=== PATIENT | female | born 1990 | race Caucasian/White ===

== ENCOUNTER 2016-11-21 11:58 | Emergency (ER) | payer MEDICAID ==
[~2016-11-21] VITALS: Ht 167.6 cm; Wt 93.9 kg
[~2016-11-21 11:58] MED LIST: CLINDAMYCIN HC300 MG PO; DARVOCET-N6 EACH/PAK PO; DIFLUCAN 200MG200 MG PO; FLONASE 50 MCG16 GM; IBUPROFEN800 MG PO; KEFLEX 500MG.500 MG PO; METFORMIN 500M500 MG PO; NAPROSYN 500MG500 MG PO; NOMEDS XX; PREDNISONE 10MG10 MG PO; PREDNISONE 20MG20 MG PO; SEPTRA DS 800 M1 TAB PO; ZITHROMAX Z PA250 MG PO
--- OUTSIDE RECORDS SUMMARY | 2016-11-21 12:10 | External Medical Summary Rpt ---
Author Author , Organization [employer] Address Unknown Phone Unavailable Care Team Providers Care Truck Spotter Name Role Phone COBB, FELICITAS Nikolay, COBB, Unavailable Unavailable FELICITAS JOSE ELIAS KINGSLEY Unavailable Unavailable JANICE GAUTHIER, Unavailable Unavailable JANICE [facility] Unavailable Unavailable SERVICE, [facility] MARSHALL SADAF, MARSHALL Unavailable Unavailable SADAF MARSHALL SADAF, MARSHALL Unavailable Unavailable SADAF [facility] Unavailable Unavailable [place], [facility] KALEY NAVARRO Unavailable Unavailable [facility], [facility] Unavailable Unavailable [facility] [place]ER[facility] JR PARTH, Unavailable Unavailable [facility], Unavailable Unavailable ECKERLINE JR PARTH [facility] Unavailable Unavailable DEPT., [facility] DE[facility]. JEREMI PATRICK, JEREMI Unavailable Unavailable [facility] Un[facility] Un[facility], [facility], Unavailable Unavailable [facility], Unavailable Unavailable [facility] STEVEN RIOS, Unavailable Unavailable STEVEN RIOS EMMETT P, Unavailable Unavailable ANIBAL GONZALES ADARSH HAT, ADARSH HAT Unavailable Unavailable [facility], Un[facility], [facility] ANDREW KRI, ANDREW KRI Unavailable Unavailable RENUSCH LAURA, RENUSCH Unavailable Unavailable LAURA SCIFRES, SCIFRES Unavailable Unavailable SCIFRES, SCIFRES Unavailable Unavailable SCIFRES ANG, SCIFRES Unavailable Unavailable ANG SCIFRES ANG, SCIFRES Unavailable Unavailable ANG LUI, ZOE [place], SMALL, Unavailable Unavailable [facility], Unavailable Unavailable [facility] Unavailable Unavailable DEPT [facility] DEPT [facility] Unavailable Unavailable DEPT [facility] DEPT [facility] CARMEN PATRICK, CARMEN Unavailable Unavailable PATRICK CARMEN PATRICK, CARMEN Unavailable Unavailable PATRICK Antonio WOLF, LUCIANO, Unavailable Unavailable Antonio C Purpose Continuity of Care Document - 08-28-2004 through 2016 Problems Code Diagnosis DOS Provider Status J320 CHRONIC 07-22-2016 [facility] SINUSITIS INC 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 N15697 HORDEOLUM 05-06-2016 SCIFRES ANG EXTERNUM RIGHT LOWER EYELID Q07217 HORDEOLUM 05-06-2016 [facility] EXTERNUM PHYSICIANS UNS EYE UNS GROUP EYELID H6121 IMPACTED 01-01-2016 [facility] CERUMEN PHYSICIAN RIGHT EAR GROUP H6690 OTITIS 01-01-2016 [facility] MEDIA PHYSICIAN UNSPECIFIED GROUP UNSPECIFIED EAR E119 TYPE 2 11-20-2015 [facility] DIABETES PHYSICIANS MELLITUS GROUP WITHOUT COMPLICATIO NS L0390 CELLULITIS 11-20-2015 [facility] UNSPECIFIED PHYSICIANS GROUP Z792 SUSTAINABILITY PROJECT COORDINATOR 11-20-2015 [facility] OF INC ANTIBIOTICS W27403 OTHER LONG 11-19-2015 [facility] CURRENT INC DRUG THERAPY E663 OVERWEIGHT 11-16-2015 [facility] PHYSICIANS GROUP Q89873 CUTANEOUS 11-14-2015 [facility] ABSCESS OF PHYSICIANS, LEFT LOWER PLLC LIMB B850 PEDICULOSIS 11-01-2015 [facility] DUE TO PHYSICIANS, PEDICULUS PLLC HUMANUS CAPITIS T78730 HORDEOLUM 11-01-2015 [facility] RIGHT LOWER INC EYELID J50115 HORDEOLUM 11-01-2015 [facility] LEFT LOWER INC EYELID X60961 CUTANEOUS 11-01-2015 [facility] ABSCESS OF PHYSICIANS, HEAD ANY PLLC PART EXCEPT FACE V220 SUPERVISION 09-11-2014 [facility] OF NORMAL [facility] FIRST V7242 09-11-2014 [facility] EXAMINATION HEALTH OR TEST POSITIVE RESULT 632 MISSED 11-25-2013 MARSHALL SADAF 84953 UNSPEC 11-23-2013 [facility] PATRICK SPONTANEOUS AB WITHOUT MENTION COMP 52836 DIAB W/O 11-22-2013 [facility] II/UNS NOT STATED UNCNTRL 41136 UNSPEC 11-22-2013 [facility] HEMORRHAGE [facility] EARLY ANTEPARTUM 55543 OTHER 11-22-2013 [facility] SPECIFED [facility] COMPLICATIO N ANTEPARTUM 96846 ABDOMINAL 11-22-2013 [facility] PAIN, JR PARTH UNSPECIFIED SITE 7915 GLYCOSURIA 11-15-2013 MARSHALL SADAF 7916 ACETONURIA 11-15-2013 MARSHALL SADAF 7919 OTHER 11-15-2013 MARSHALL SADAF NONSPECIFIC FINDING EXAMINATION OF URINE V239 UNSPECIFIED 11-14-2013 [facility] TH DEPT GENEVIEVE 7806 FEVER & OTH 01-28-2008 Antonio WOLF MD [facility] PHYSIOLOGIC DISTURBANCE S TEMP REG 0794 HUMAN 01-11-2008 [facility] [place] VIRUS IN CCE & UNS SITE 53508 MODERATE 01-11-2008 [facility] DYSPLASIA [place] INC OF CERVIX 50002 PAP SMER 01-11-2008 [facility]OM[facility] CERV W/LW [facility] OF SQUAMOUS ABILENE INTRAEPITH [facility] LES 1129 CANDIDIASIS 12-26-2007 WOMEN'S OF HEALTH UNSPECIFIED CLINIC OF SITE [facility] 6264 IRREGULAR 12-26-2007 WOMEN'S MENSTRUAL HEALTH CYCLE CLINIC OF [facility] 6262 EXCESSIVE 12-22-2007 [facility] INC MENSTRUATIO N 89473 UNSPECIFIED 12-14-2007 GABRIEL INFECTIVE STEVEN Ambrocio OTITIS EXTERNA 3831 CHRONIC 12-14-2007 GABRIEL MASTOIDITIS STEVEN Ambrocio 22526 ATROPHIC 12-14-2007 GABRIEL FLACCID STEVEN Ambrocio TYMPANIC MEMBRANE 4660 ACUTE 08-14-2007 Antonio WILKINS MD PSC 29001 CLOSED 08-02-2007 [facility] DISLOCATION AMBULANCE OF WRIST SERVICE UNSPECIFIED PART 49308 OPEN WOUND 08-02-2007 [facility] MENTION PROF SERV COMPLICATIO N 8820 OPEN WOUND 08-02-2007 [facility] HAND NO AMBULANCE FINGER SERVICE ALONE W/O MENTION COMP 920 CONTUSION 08-02-2007 [facility] MEDICAL SCALP AND IMAG[facility] EYE 9221 CONTUSION 08-02-2007 [facility] CHEST [facility] PROF SERV 42690 CONTUSION 08-02-2007 [facility] PROF SERV 96168 CONTUSION 08-02-2007 [facility] PROF SERV 7295 PAIN IN 07-10-2007 Antonio SCHWARTZ MD PSC TISSUES OF LIMB 96563 OBESITY, 09-22-2005 [facility] UNSPECIFIED OF [place] PEDIA 7061 OTHER ACNE 09-22-2005 [facility] PEDIA 27511 OVERWEIGHT 06-30-2005 [facility] PEDIA 7831 ABNORMAL 02-03-2005 [facility] WEIGHT GAIN [facility] P[facility]IA 5770 ACUTE 08-30-2004 [facility] PANCREATITI [facility] S PEDIA B85.0 PEDICULOSIS DUE TO PEDICULUS HUMANUS CAPITIS E11.9 TYPE 2 DIABETES MELLITUS WITHOUT COMPLICATIO NS H00.019 HORDEOLUM EXTERNUM UNSPECIFIED EYE, UNSPECIFIED EYELID L02.416 CUTANEOUS ABSCESS OF LEFT LOWER LIMB L02.91 CUTANEOUS ABSCESS, UNSPECIFIED Allergies, Adverse Reactions, Alerts Clinical Alert Notifications Alert Diabetes: no A1C in the last 6 months Diabetes: no influenza vaccine in the last 365 days Diabetes: no lipid panel in the last 365 days Diabetes: no urine protein screening in the last 365 days Medications Na ND Rx Da Fi Fi Am Da Di Ph RX Ph St me C No te ll ll ou ys ag ar # ys at rm s nt no ma ic us Or Da si cy ia de te s n re d FL 55 02 03 1. 1 00 [place] Ac UC 11 -2 -1 00 00 L- ti ON 10 0- 7- 0 07 MA ve AZ 14 20 20 47 RT OL 51 17 17 17 E 2 84 PH 15 AR 0 MA MG CY TA #5 BL 91 ET AZ 59 02 03 6. 5 00 [facility] IT 76 -1 -1 00 00 L- ti HR 23 7- 7- 0 07 MA ve OM 06 20 20 47 RT YC 00 17 17 13 IN 1 29 PH AR 25 MA 0 CY MG #5 TA 91 BL ET FL 60 02 03 16 30 00 [facility] UT 50 -1 -1 .0 00 L- ti IC 50 7- 7- 00 07 MA ve 82 20 20 47 RT ON 90 17 17 13 E 1 31 PH MS AR OP MA CY 50 #5 MC 91 G SP RA Y MS 00 02 03 10 5 00 [facility] ED 14 -1 -1 .0 00 L- ti NI 39 7- 7- 00 07 MA ve SO 73 20 20 47 RT NE 80 17 17 13 5 33 PH 20 AR MA MG CY TA #5 BL 91 ET FL 55 12 01 1. 1 00 [place] Ac UC 11 -0 -0 00 00 L- ti ON 10 9- 9- 0 07 MA ve AZ 14 20 20 45 RT OL 51 16 17 75 E 2 63 PH 15 AR 0 MA MG CY TA #5 BL 91 ET DO 00 12 01 20 10 00 [facility] XY 71 -0 -0 .0 00 L- ti CY 30 9- 9- 00 07 MA ve CL 42 20 20 45 RT IN 95 16 17 75 E 0 61 PH MO AR NO MA CY 10 0 #5 MG 91 CA P 00 04 09 03 1. 15 EA 97 No Ac 14 -1 -[address] 56 t ti 52 0- 1- 0 SI 00 Av ve 36 20 20 DE ai 70 08 08 la 1 PH bl AR e MA CY OF CY NT HI AN A YA 50 07 08 01 28 28 EA 98 No Ac Z 41 -2 -[address] 81 t ti 28 90 3- 8- 00 SI 91 Av ve 40 20 20 DE ai TA 50 08 08 la BL 3 PH bl ET AR e MA CY OF CY NT HI AN A YA 50 07 08 00 28 28 EA 98 No Ac Z 41 -2 -[address] 81 t ti 28 90 3- 1- 00 SI 91 Av ve 40 20 20 DE ai TA 50 08 08 la BL 3 PH bl ET AR e MA CY OF CY NT HI AN A 64 07 08 00 5. 1 EA 98 No Ac 01 -2 -[address] 81 t ti 10 3- 1- 9 SI 90 Av ve 00 20 20 DE ai 10 08 08 la 8 PH bl AR e MA CY OF CY NT HI AN A CI 00 07 07 00 7. 7 EA 98 No Ac MS 06 -1 -[address] 69 t ti OD 58 1- 7- 0 SI 54 Av ve EX 53 20 20 DE ai 30 08 08 la OT 2 PH bl IC AR e MA RICO CY SP EN OF SI CY ON NT HI AN A 00 04 07 02 1. 15 EA 97 No Ac 14 -1 -[address] 56 t ti 52 0- 7- 0 SI 00 Av ve 36 20 20 DE ai 70 08 08 la 1 PH bl AR e MA CY OF CY NT HI AN A 00 04 06 01 1. 15 EA 97 No Ac 14 -1 -[address] 56 t ti 52 0- 5- 0 SI 00 Av ve 36 20 20 DE ai 70 08 08 la 1 PH bl AR e MA CY OF CY NT HI AN A 00 04 04 00 1. 15 EA 97 No Ac 14 -1 -[address] 56 t ti 52 0- 4- 0 SI 00 Av ve 36 20 20 DE ai 70 08 08 la 1 PH bl AR e MA CY OF CY NT HI AN A AZ 64 03 04 00 6. 6 EA 97 No Ac IT 67 -1 -[address] 16 t ti HR 90 1- 7- 0 SI 73 Av ve OM 96 20 20 DE ai YC 10 08 08 la IN 5 PH bl AR e 25 MA 0 CY MG OF TA CY BL NT ET HI AN A CE 00 02 04 00 12 3 EA 97 No Ac PH 09 -2 -[address] 01 t ti AL 33 8- 7- 00 SI 98 Av ve EX 14 20 20 DE ai IN 70 08 08 la 1 PH bl 50 AR e 0 MA MG CY CA OF PS CY UL NT E HI AN A 00 02 04 00 6. 2 EA 97 No Ac 60 -2 -[address] 01 t ti 35 8- 7- 0 SI 97 Av ve 46 20 20 DE ai 82 08 08 la 8 PH bl AR e MA CY OF CY NT HI AN A 49 02 03 00 30 10 EA 96 No Ac 88 -0 -[address] 68 t ti 40 5- 6- 00 SI 19 Av ve 77 20 20 DE ai 90 08 08 la 1 PH bl AR e MA CY OF CY NT HI AN A DU 00 02 03 00 45 15 EA 96 No Ac AC 14 -2 -[address] 90 t ti 52 1- 6- 00 SI 85 Av ve 1. 37 20 20 DE ai 2- 10 08 08 la 5% 5 PH bl AR e GE MA L CY OF CY NT HI AN A JU 00 02 03 00 21 21 EA 96 No Ac NE 55 -0 -[address] 68 t ti L 59 5- 6- 00 SI 18 Av ve 1 02 20 20 DE ai MG 54 08 08 la -2 2 PH bl 0 AR e MC MA G CY TA BL OF ET CY NT HI AN A Procedures Procedure DOS Code Location Performer Comment IAADIADOO 14833 [facility] INFLUENZA INC INC OPHTH 17573 SCIFRES SCIFRES MEDICAL 6 XM&EVAL COMPRHNSV ESTAB PT 1/> REMOVAL 34163 [facility] IMPACTED 6 PHYSICIAN [place] [address] [facility] INFUSION 6 [facility] THERAPY/P INC INC ROPHYLAXI S /DX 1ST TO 1 HR INJECTION J0878 [facility] DAPTOMYCI INC INC N 1 MG INJECTION J0878 [facility] DAPTOMYCI INC INC N 1 [place] [address] [facility] INFUSION 6 [facility] THERAPY/P INC INC ROPHYLAXI S /DX 1ST TO 1 HR DRUG 83368 [facility] SCREEN 6 [facility] QUANTITAT [place] [address] [facility] INFUSION 6 [facility] THERAPY INC [place] PROP[place]X [place] [address] [facility] INFUSION 6 [facility] THERAPY/P INC INC ROPHYLAXI S /DX 1ST TO 1 HR DRUG 03049 [facility] SCREEN 6 [facility] QUANTITAT [place] [address] [facility] INFUSION 6 [facility] THERAPY INC [place] [address] [facility] INFUSION 6 [facility] THERAPY/P INC INC ROPHYLAXI S /DX 1ST TO 1 [place] [address] [facility] INFUSION 6 [facility] THERAPY INC [place] [address] [facility] INFUSION 6 [facility] THERAPY/P INC INC ROPHYLAXI S /DX 1ST TO [place] [address] [facility] INFUSION 6 [facility] THERAPY/P INC INC ROPHYLAXI S /DX 1ST TO [place] [address] [facility] INFUSION 6 [facility] THERAPY INC INC PROPHYLAX IS/DX EA HOUR THERAPEUT 81671 [facility] IC 6 [facility] INJECTION INC INC IV PUSH EACH NEW DRUG SUSCEPTIB 62838 [facility] LTY STDY 6 [facility] ANTIMICRB INC INC IAL MICRO/AGA R DILUTJ HEMOGLOBI 13481 [facility] N 6 [facility] GLYCOSYLA INC INC LIS A1C COMPREHEN 19773 [facility] SIVE 6 [facility] METABOLIC INC INC PANEL INJECTION J2405 [facility] 6 [facility] ONDANSETR INC INC ON HCL PER 1 MG CUL BACT 54495 [facility] AEROBIC 6 [facility] ADDL INC INC METHS DEFINITIV E EA ISOL CUL BACT 12177 [facility] XCPT 6 [facility] URINE INC INC BLOOD/STO OL AEROBIC ISOL BLOOD 15551 [facility] COUNT 6 [facility] COMPLETE INC INC AUTO&AUTO DIFRNTL WBC INCISION 15326 [facility] BLOOD & 6 PHYSICIAN PATRICK DRAINAGE S, PLLC ABSCESS COMPLICAT ED/MULTIP LE INCISION 89226 [facility] RENUSCShannon & 6 PHYSICIAN LAURA DRAINAGE S, PLLC ABSCESS COMPLICAT ED/MULTIP LE INCISION 46816 [facility] & 6 [facility] DRAINAGE INC INC ABSCESS SIMPLE/SI NGLE URINE 43989 [facility] [address] [place] [address] VISUAL DEPT. COLOR CMPRSN METHS [place] PREG 33076 [facility] MARSHALL UTERUS 4 SADAF SADAF REAL TIME W/IMAGE DCMTN TRANSVAG US PREG 83023 CAR[facility] CARMEN UTERUS 4 PATRICK PATRICK REAL TIME W/IMAGE DCMTN TRANSVAG BLOOD 60374 [facility] TYPING 4 Y [place] SEROLOG[place] [address] [facility] SURG 4 Y Y PATHOLOGY [facility] GROSS&PATRICK ROSCOPIC EXAM URNLS DIP 96918 [facility] 4 Y Y STICK/TAB [facility] LET RGNT AUTO W/O MICROSCOP Y URINE 42429 [facility] 4 Y Y TEST [facility] VISUAL COLOR CMPRSN METHS BLOOD 63938 [facility] TYPING 4 Y Y SEROLOGIC [facility] RH (D) BLOOD 33001 [facility] COUNT 4 Y Y COMPLETE [facility] AUTOMATED GONADOTRO 56140 [facility] PIN 4 Y Y CHORIONIC [facility] QUANTITAT EVE US PREG 16898 [facility] MARSHALL UTERUS 4 SADAF SADAF REAL TIME W/IMAGE DCMTN TRANSVAG SUSCEPTIB 37152 COMBIN[facility] COMBINED ILITY 4 PHYSICIAN PHYSICIAN STUDY S LA S LA ANTIMICRO BIAL DISK METHOD CULTURE 13329 COMBINED COMBINED BACTERIAL 4 PHYSICIAN PHYSICIAN S LA S LA QUANTTATI VE COLONY COUNT URINE URINE 14786 [facility] MARSHALL 4 SADAF SADAF TEST VISUAL COLOR CMPRSN METHS URINE 71518 [facility] TEST [facility] DEPT HLTH DEPT VISUAL GENEVIEVE GENEVIEVE COLOR CMPRSN METHS GLUC BLD 31231 [facility] GLUC MNTR 4 DISTRICT DISTRICT DEV HLTH DEPT HLTH DEPT CLEARED GENEVIEVE GENEVIEVE FDA SPEC HOME USE COLLECTIO 79600 Antonio CANTU VENOUS 8 LUCIANO Link B[place] [address] [facility], SURG 8 [place] INC JANICE Weldon PATHOLOGY GROSS&PATRICK ROSCOPIC EXAM CYTP 88721 [facility], SLCTV 8 [place] INC JANICE Weldon CELL ENHANCEME NT INTERPJ XCPT C/V COLPOSCOP 64506 [facility] CO[facility], Y CERVIX 8 [facility] BX CERVIX CLINIC OF & ENDOCRV [place] CURRETAGE PLLC SMR PRIM 90800 [facility], SRC WET 8 [facility] AGT [place] PLLC URINE 19643 [facility] 8 [facility] TEST INC INC VISUAL COLOR CMPRSN METHS CULTURE 70021 [facility] BACTERIAL 8 [facility] INC INC QUANTTATI VE COLONY COUNT URINE URNLS DIP 19501 [facility] 8 [facility] STICK/TAB INC INC LET REAGENT AUTO MICROSCOP Y BLOOD 14225 [facility] COUNT 8 [facility] COMPLETE INC INC AUTO&AUTO DIFRNTL WBC DEBRIDEME 86618 GABRIEL RIOS, NT 8 STEVEN Ambrocio MASTOIDEC NICOLA CAVITY SIMPLE COMPRE 51703 GABRIEL RIOS, AUDIOMETR 8 STEVEN Ambrocio Y THRESHOLD EVAL SP RECOGNIJ URINE 78410 [facility] TEST INC INC VISUAL COLOR CMPRSN METHS RADIOLOGI 84322 [facility] C 8 [facility] EXAMINATI INC INC ON KNEE 3 VIEWS AMBULANCE A0429 [facility] SERVICE 8 AMBULANCE AMBULANCE BLS SERVICE SERVICE EMERGENCY TRANSPORT GROUND A0425 [facility] MILEAGE 8 AMBULANCE AMBULANCE PER SERVICE SERVICE STATUTE MILE RADEX 22730 ODALYS GONZALES, FOREARM 2 8 MEDICAL ANIBAL P VIEWS IMAGING ASSOCIATE S SIMPLE 66185 [facility] SMALL, REPAIR 8 [facility] K/AX/SOWMYA PROF SERV T/TRUNK 2.5CM/< RADEX 50054 [facility] HAND 8 [facility] MINIMUM 3 INC INC VIEWS RADIOLOGI 91797 ODALYS GONZALES, C EXAM 8 MEDICAL AINBAL P CHEST 2 IMAGING VIEWS ASSOCIATE FRONTAL&L S ATERAL RADEX 16144 [facility] SPINE 8 [facility] CERVICAL INC INC 6 OR MORE VIEWS RADEX 02236 [facility] ELBOW 8 [facility] COMPLETE INC INC MINIMUM 3 VIEWS CLOSURE 8659 [facility] SKIN&SUBC 8 [facility] UTANEOUS INC INC TISSUE OTHER SITES SERVICES 13120 Antonio WOLF, Antonio PROVIDED 8 LUCIANO Link OFFICE PSC OTH/THN REG SCHED HOURS SBSQ 06242 [facility] 5 Y OF [facility]/DAY [place] 25 PEDIA MINUTES SBSQ 99315 [facility] 5 Y OF [facility]/DAY [place] 25 PEDIA MINUTES SBSQ 72484 [facility] [place] [facility]ES Encounters Encounter Start End Date Code Location Performer Type Date HOSPITAL [facility] - 7 7 [facility] OUTPATIEN INC T OFFICE 88363 [facility] 7 7 [facility] T VISIT 5 INC MINUTES OFFICE 12006 [facility] JEREMI OUTPATIEN 6 6 PHYSICIAN PATRICK T VISIT S GROUP 15 MINUTES OFFICE 22916 SCIFRES SCIFRES OUTPATIEN 6 6 ANG ANG T VISIT 10 MINUTES OFFICE 58725 [facility] KALEY OUTPATIEN 6 6 PHYSICIAN T NEW 20 GROUP MINUTES OFFICE 60119 [facility] JEREMI OUTPATIEN 6 6 PHYSICIAN PATRICK T VISIT S GROUP 10 MINUTES HOSPITAL [facility] - 6 6 [facility] OUTPATIEN INC T HOSPITAL KEEGAN - 6 6 [facility] OUTPATIEN INC T HOSPITAL KEEGAN - 6 6 [facility] OUTPATIEN INC T HOSPITAL KEEGAN - 6 6 [facility] OUTPATIEN [facility] T OFFICE 53450 [facility] JEREMI OUTPATIEN 6 6 PHYSICIAN PATRICK T NEW S GROUP MINUTES HOSPITAL K[facility] - 6 6 [facility] OUTPATIEN INC T HOSPITAL KEEGAN - 6 6 [facility] OUTPATIEN [facility] T EMERGENCY 53471 [facility] BLOOD DEPT 6 6 PHYSICIAN PATRICK VISIT S, [facility] HIGH SEVERITY& THREAT [facility] KEEGAN - 6 6 [facility] OUTPATIEN [facility] EMERGENCY 02432 [facility] WOODS 6 6 PHYSICIAN LAURA BLOOM S, [facility] T VISIT MODERATE SEVERITY OFFICE 90139 [facility] OUTPATIEN 5 5 [facility] T NEW 10 [facility] MINUTES DEPT. EMERGENCY 61152 UNIVERSIT DEPT 4 4 Y VISIT HOSPITAL HIGH SEVERITY& THREAT [facility]ERSIT - [facility] 60134 ECKERLINE ECKERLINE 4 4 [facility] T VISIT HIGH/URGE NT SEVERITY OFFICE 40746 ROLANDO MARSHALL OUTPATIEN 4 4 SADAF SADAF T 45 MINUTES OFFICE 93038 [facility] OUTPATIEN 4 4 [facility] DISTRICT T VISIT TH DEPT HLTH DEPT 25 GENEVIEVE GENEVIEVE MINUTES OFFICE 56636 Antonio CANTU OUTPATIEN 8 8 LUCIANO Link T VISIT PSC 15 MINUTES OFFICE 06410 [facility] 8 8 FREDDIE Link T NEW 30 CLINIC OF MINUTES [facility] KEEGAN - 8 8 [facility] OUTPATIEN INC T EMERGENCY 74705 [facility] 8 8 [facility] T VISIT HIGH/URGE NT SEVERITY OFFICE 83805 GABRIEL RIOS OUTPATIEN 8 8 STEVEN Ambrocio T VISIT 15 MINUTES OFFICE 83349 Antonio CANTU OUTPATIHUNG 8 8 LUCIANO Link T VISIT PSC 15 MINUTES EMERGENCY 83476 [facility] SMALL, 8 8 [facility] T VISIT PROF SERV HIGH/URGE NT SEVERITY [facility] KEEGAN - 8 8 [facility] OUTPATIEN INC T OFFICE 83200 Antonio CANTU OUTPATIHUNG 8 8 LUCIANO Link T VISIT PSC 15 MINUTES OFFICE 45054 [facility]ERSIT ADARSH HAT OUTPATIEN 6 6 Y OF T VISIT [place] 15 PEDIA MINUTES OFFICE 26471 [facility] ANDREW KRI OUTPATIEN 6 6 Y OF T VISIT [place] 15 PEDIA MINUTES OFFICE 48722 [facility] ANDREW KRI OUTPATIEN 5 5 Y OF T VISIT [place] 15 PEDIA MINUTES OFFICE 43221 [facility] ADARSH HAT OUTPATIEN 5 5 Y OF T VISIT [place] 15 PEDIA MINUTES
--- OUTSIDE RECORDS SUMMARY | 2016-11-21 12:10 | External Medical Summary Rpt ---
Author Author , Organization [employer] Address Unknown Phone Unavailable Care Team Providers Care Aws Solution Architect Name Role Phone COBB, FELICITAS Nikolay, COBB, Unavailable Unavailable FELICITAS JOSE ELIAS KINGSLEY Unavailable Unavailable JANICE GAUTHIER, Unavailable Unavailable JANICE [facility] Unavailable Unavailable SERVICE, [facility] MARSHALL SADAF, MARSHALL Unavailable Unavailable SADAF MARSHALL SADAF, MARSHALL Unavailable Unavailable SADAF [facility] Unavailable Unavailable [place], [facility] KALEY NAVARRO Unavailable Unavailable [facility], [facility] Unavailable Unavailable [facility] [place] [place] ECKERLINE JR PARTH, Unavailable Unavailable ECKERLINE JR PARTH ECKERLINE JR PARTH, Unavailable Unavailable ECKERLINE JR PARTH [facility] Unavailable Unavailable DEPT., [facility] DEPT. JEREMI PATRICK, JEREMI Unavailable Unavailable [facility] Un[facility] Un[facility], [facility], Unavailable Unavailable [facility], Unavailable Unavailable [facility] STEVEN RIOS, Unavailable Unavailable [...] ANG LUI, [place]OE [place], SMALL, Unavailable Unavailable [facility], Unavailable [facility]available [facility] Unavailable Unavailable DEPT [facility] DEPT [facility] Unavailable [facility]available DEPT [facility] DEPT [facility] CARMEN PATRICK, CARMEN Unavailable Unavailable PATRICK CARMEN PATRICK, CARMEN Unavailable Unavailable PATRICK Antonio WOLF, LUCIANO, Unavailable Unavailable Antonio C Purpose Continuity of Care Document - 08-28-2004 through 2016 Problems Code Diagnosis DOS Provider Status J320 CHRONIC 07-22-2016 [facility] SINUSITIS INC 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 REGULAR 05-13-2016 [facility] ASTIGMATISM BILATERAL D00717 HORDEOLUM 05-06-2016 [facility] ANG EXTERNUM RIGHT LOWER EYELID B87170 HORDEOLUM 05-06-2016 [facility] EXTERNUM PHYSICIANS UNS EYE UNS GROUP EYELID H6121 IMPACTED 01-01-2016 [facility] CERUMEN PHYSICIAN RIGHT EAR GROUP H6690 OTITIS 01-01-2016 [facility] MEDIA PHYSICIAN UNSPECIFIED GROUP UNSPECIFIED EAR E119 TYPE 2 11-20-2015 [facility] DIABETES PHYSICIANS MELLITUS GROUP WITHOUT COMPLICATIO NS L0390 CELLULITIS 11-20-2015 [facility] UNSPECIFIED PHYSICIANS GROUP 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 V47457 OTHER LONG 11-19-2015 [facility] CURRENT INC DRUG THERAPY E663 OVERWEIGHT 11-16-2015 [facility] D56447 CUTANEOUS 11-14-2015 [facility] ABSCESS OF PHYSICIANS, LEFT LOWER PLLC LIMB B850 PEDICULOSIS 11-01-2015 [facility] DUE TO PHYSICIANS, PEDICULUS PLLC HUMANUS CAPITIS F50957 HORDEOLUM 11-01-2015 [facility] RIGHT LOWER INC EYELID D18085 HORDEOLUM 11-01-2015 [facility] LEFT LOWER INC EYELID F33338 CUTANEOUS 11-01-2015 [place] ABSCESS OF PHYSICIANS, HEAD ANY PLLC PART EXCEPT FACE V220 SUPERVISION 09-11-2014 [facility] V7242 09-11-2014 [facility] EXAMINATION HEALTH OR TEST POSITIVE RESULT 632 MISSED 11-25-2013 MARSHALL SADAF 85619 UNSPEC 11-23-2013 [facility] PATRICK SPONTANEOUS AB WITHOUT MENTION COMP 01323 DIAB W/O 11-22-2013 [facility] II/UNS NOT STATED UNCNTRL 24239 UNSPEC 11-22-2013 E[facility] HEMORRHAGE JR PARTH EARLY ANTEPARTUM 60382 OTHER 11-22-2013 [facility] SPECIFED JR [facility] COMPLICATIO N ANTEPARTUM 73128 ABDOMINAL 11-22-2013 [facility] PAIN, JR PARTH UNSPECIFIED SITE 7915 GLYCOSURIA 11-15-2013 MARSHALL SADAF 7916 ACETONURIA 11-15-2013 [facility] SADAF 7919 OTHER 11-15-2013 [facility]ALL SADAF NONSPECIFIC FINDING EXAMINATION OF URINE V239 UNSPECIFIED 11-14-2013 [facility] HIGH-RISK DISTRICT TH DEPT GENEVIEVE 7806 FEVER & OTH 01-28-2008 Antonio WOLF MD [facility] PHYSIOLOGIC DISTURBANCE S TEMP REG 0794 HUMAN 01-11-2008 [facility] [place] VIRUS IN CCE & UNS SITE 03091 MODERATE 01-11-2008 [facility] [place]YS[place] INC OF CERVIX 19335 PAP SMER 01-11-2008 [facility]OMEN'[facility] CERV W/LW [facility] [place] [facility] LES 1129 CANDIDIASIS 12-26-2007 WOMEN'S OF HEALTH UNSPECIFIED CLINIC OF SITE [facility] 6264 IRREGULAR 12-26-2007 WOMEN'S MENSTRUAL HEALTH CYCLE [facility]IN[facility] OF [facility] 6262 EXCESSIVE 12-22-2007 [facility] INC MENSTRUATIO N 77202 UNSPECIFIED 12-14-2007 [facility] INFECTIVE STEVEN Ambrocio OTITIS EXTERNA 3831 CHRONIC 12-14-2007 [facility] MASTOIDITIS STEVEN Ambrocio 60275 ATROPHIC 12-14-2007 G[facility]EL FLACCID STEVEN Ambrocio TYMPANIC MEMBRANE 4660 ACUTE 08-14-2007 Antonio WILKINS MD PSC 48749 CLOSED 08-02-2007 [facility] DISLOCATION AMBULANCE OF WRIST SERVICE UNSPECIFIED PART 18060 OPEN WOUND 08-02-2007 [facility] MENTION PROF SERV COMPLICATIO N 8820 OPEN WOUND 08-02-2007 [facility] HAND NO AMBULANCE FINGER SERVICE ALONE W/O MENTION COMP 920 CONTUSION 08-02-2007 [facility] MEDICAL SCALP AND IMAGING [facility] 9221 CONTUSION 08-02-2007 [facility] PROF SERV 71972 CONTUSION 08-02-2007 [facility] PROF SERV 76717 CONTUSION 08-02-2007 [facility] PROF SERV 7295 PAIN IN 07-10-2007 Antonio SCHWARTZ MD PSC TISSUES OF LIMB 11332 OBESITY, 09-22-2005 [place] UNSPECIFIED OF [place] PEDIA 7061 OTHER ACNE 09-22-2005 [facility] PEDIA 12208 OVERWEIGHT 06-30-2005 [facility] PEDIA 7831 ABNORMAL 02-03-2005 [place] WEIGHT GAIN [facility] PEDIA 5770 ACUTE 08-30-2004 [place] PANCREATITI [facility] S PEDIA B85.0 PEDICULOSIS DUE TO PEDICULUS [...] FL 55 02 03 1. 1 00 [place] Ac UC 11 -2 -1 00 00 L- ti ON 10 0- 7- 0 07 MA ve AZ 14 20 20 47 RT OL 51 17 17 17 E 2 84 PH 15 AR 0 MA MG CY TA #5 BL 91 ET AZ 59 02 03 6. 5 00 [facility] IT 76 -1 -1 00 00 L- ti HR 23 7- 7- 0 07 MA ve OM 06 20 20 47 RT YC 00 17 17 13 IN 1 29 PH AR 25 MA 0 CY MG #5 TA 91 BL ET FL 60 02 03 16 30 00 [facility] UT 50 -1 -1 .0 00 L- ti IC 50 7- 7- 00 07 MA ve 82 20 20 47 RT ON 90 17 17 13 E 1 31 PH ID AR OP MA CY 50 #5 MC 91 G SP RA Y ID 00 02 03 10 5 00 [facility] ED 14 -1 -1 .0 00 L- ti NI 39 7- 7- 00 07 MA ve SO 73 20 20 47 RT NE 80 17 17 13 5 33 PH 20 AR MA MG CY TA #5 BL 91 ET FL 55 12 01 1. 1 00 [place] Ac UC 11 -0 -0 00 00 L- ti ON 10 9- 9- 0 07 MA ve AZ 14 20 20 45 RT OL 51 16 17 75 E 2 63 PH 15 AR 0 MA MG CY TA #5 BL 91 ET DO 00 12 01 20 10 00 [facility] XY 71 -0 -0 .0 [...] 00 7. 7 EA 98 No Ac ID 06 -1 -[address] 69 t [...] Procedure DOS Code Location Performer Comment IAADIADOO 05535 [facility] INFLUENZA INC INC OPHTH 74841 SCIFRES SCIFRES MEDICAL 6 XM&EVAL COMPRHNSV ESTAB PT 1/> REMOVAL 54153 [facility] KALEY IMPACTED 6 PHYSICIAN [place] [address] [facility] INFUSION 6 [facility] THERAPY/P INC INC ROPHYLAXI S /DX 1ST TO 1 HR INJECTION J0878 [facility] DAPTOMYCI INC INC N 1 MG INJECTION J0878 [facility] DAPTOMYCI INC INC N 1 [place] [address] [facility] INFUSION 6 [facility] THERAPY/P INC INC ROPHYLAXI S /DX 1ST TO 1 HR DRUG 18573 [facility] SCREEN 6 [facility] QU[place]ITAT [place] [address] [facility] INFUSION 6 [facility] THERAPY INC [place] [address] [facility] INFUSION 6 [facility] THERAPY/P INC INC ROPHYLAXI S /DX 1ST TO 1 HR DRUG 99492 [facility] SCREEN 6 [facility] QUANTITAT [place] [address] [facility] INFUSION 6 [facility] THERAPY INC [place] [address] [facility] INFUSION 6 [facility] THERAPY/P INC INC ROPHYLAXI S /DX 1ST TO 1 [place] [address] [facility] INFUSION 6 [facility] THERAPY INC [place] [address] [facility] INFUSION 6 [facility] THERAPY/P INC INC ROPHYLAXI S /DX 1ST TO 1 [place] [address] [facility] INFUSION 6 [facility] THERAPY/P INC INC ROPHYLAXI S /DX 1ST TO 1 [place] [address] [facility] INFUSION 6 [facility] THERAPY INC INC PROPHYLAX IS/DX EA HOUR THERAPEUT 27520 [facility] IC 6 [facility] INJECTION INC INC IV PUSH EACH NEW DRUG SUSCEPTIB 00578 [facility] LTY STDY 6 [facility] ANTIMICRB INC INC IAL MICRO/AGA R DILUTJ HEMOGLOBI 78353 [facility] N 6 [facility] GLYCOSYLA INC INC LIS A1C COMPREHEN 04282 [facility] SIVE 6 [facility] METABOLIC INC INC PANEL INJECTION J2405 [facility] 6 [facility] ONDANSETR INC INC ON HCL PER 1 MG CUL BACT 42322 [facility] AEROBIC 6 [facility] ADDL INC INC METHS DEFINITIV E EA ISOL CUL BACT 83840 [facility] XCPT 6 [facility] URINE INC INC BLOOD/STO OL AEROBIC ISOL BLOOD 73804 [facility] COUNT 6 [facility] COMPLETE INC INC AUTO&AUTO DIFRNTL WBC INCISION 35515 [facility] BLOOD & 6 PHYSICIAN PATRICK DRAINAGE S, PLLC ABSCESS COMPLICAT ED/MULTIP LE INCISION 70766 [facility] RENUSCShannon & 6 PHYSICIAN LAURA DRAINAGE S, PLLC ABSCESS COMPLICAT ED/MULTIP LE INCISION 06140 [facility] & 6 [facility] DRAINAGE INC INC ABSCESS SIMPLE/SI NGLE URINE 28182 [facility] [address] [place] [address] VISUAL DEPT. COLOR CMPRSN METHS US PREG 20277 [facility] MARSHALL UTERUS 4 SADAF SADAF REAL TIME W/IMAGE DCMTN TRANSVAG US PREG 43530 [facility] CARMEN UTERUS 4 PATRICK PATRICK REAL TIME W/IMAGE DCMTN TRANSVAG BLOOD 70963 [facility] TYPING 4 Y Y SEROLOGIC [facility] [place] [address] [facility] SURG 4 Y Y PATHOLOGY [facility] GROSS&PATRICK ROSCOPIC EXAM URNLS DIP 17768 [facility] [place] 4 Y Y STICK/TAB [facility] LET RGNT AUTO W/O MICROSCOP Y URINE 01154 [facility] [place] 4 Y Y TEST [facility] VISUAL COLOR CMPRSN METHS BLOOD 19468 [facility] [place] TYPING 4 Y Y SEROLOGIC [facility] RH (D) BLOOD 08629 [facility] COUNT 4 Y Y COMPLETE [facility] AUTOMATED GONADOTRO 40119 [facility] PIN 4 Y Y CHORIONIC [facility] QUANTITAT EVE US PREG 80832 [facility] MARSHALL UTERUS 4 SADAF SADAF REAL TIME W/IMAGE DCMTN TRANSVAG SUSCEPTIB 61267 [facility] COMBINED ILITY 4 PHYSICIAN PHYSICIAN STUDY S LA S LA ANTIMICRO BIAL DISK METHOD CULTURE 56490 COMBINED COMBINED BACTERIAL 4 PHYSICIAN PHYSICIAN S LA S LA QUANTTATI VE COLONY COUNT URINE URINE 54399 [facility] MARSHALL 4 SADAF SADAF TEST VISUAL COLOR CMPRSN METHS URINE 74234 [facility] TEST [facility] DEPT HLTH DEPT VISUAL GENEVIEVE GENEVIEVE COLOR CMPRSN METHS GLUC BLD 90528 [facility] GLUC MNTR 4 [facility] DISTRICT DEV HLTH DEPT HLTH DEPT CLEARED GENEVIEVE GENEVIEVE FDA SPEC HOME USE COLLECTIO 87934 Antonio CANTU VENOUS 8 LUCIANO Link B[place] [address] [facility], SURG 8 [place] INC JANICE Weldon PATHOLOGY GROSS&PATRICK ROSCOPIC EXAM CYTP 34213 [facility], SLCTV 8 [place] INC JANICE Weldon CELL ENHANCEME NT INTERPJ XCPT C/V COLPOSCOP 04862 [facility], Y CERVIX 8 [facility] BX CERVIX CLINIC OF & ENDOCRV [place] CURRETAGE PLLC SMR PRIM 00318 [facility], SRC WET 8 [facility] AGT [place] PLLC URINE 54505 [facility] 8 [facility] TEST INC INC VISUAL COLOR CMPRSN METHS CULTURE 61274 [facility] BACTERIAL 8 [facility] INC INC QUANTTATI VE COLONY COUNT URINE URNLS DIP 92000 [facility] 8 [facility] STICK/TAB INC INC LET REAGENT AUTO MICROSCOP Y BLOOD 10283 [facility] COUNT 8 [facility] COMPLETE INC INC AUTO&AUTO DIFRNTL WBC DEBRIDEME 90104 GABRIEL RIOS, NT 8 STEVEN Ambrocio MASTOIDEC NICOLA CAVITY SIMPLE COMPRE 28692 GABRIEL RIOS, AUDIOMETR 8 STEVEN Ambrocio Y THRESHOLD EVAL SP RECOGNIJ URINE 19134 [facility] TEST INC INC VISUAL COLOR CMPRSN METHS RADIOLOGI 56573 [facility] C 8 [facility] EXAMINATI INC INC ON KNEE 3 VIEWS AMBULANCE A0429 [facility] SERVICE 8 AMBULANCE AMBULANCE BLS SERVICE SERVICE EMERGENCY TRANSPORT GROUND A0425 [facility] MILEAGE 8 AMBULANCE AMBULANCE PER SERVICE SERVICE STATUTE MILE RADEX 64919 ODALYS GONZALES, FOREARM 2 8 MEDICAL ANIBAL P VIEWS IMAGING ASSOCIATE S SIMPLE 38497 [facility] SMALL, REPAIR 8 [facility] K/AX/SOWMYA PROF SERV T/TRUNK 2.5CM/< RADEX 81554 [facility] HAND 8 [facility] MINIMUM 3 INC INC VIEWS RADIOLOGI 20952 ODALYS GONZALES, C EXAM 8 MEDICAL ANIBAL P CHEST 2 IMAGING VIEWS ASSOCIATE FRONTAL&L S ATERAL RADEX 80557 [facility] SPINE 8 [facility] CERVICAL INC INC 6 OR MORE VIEWS RADEX 79252 [facility] ELBOW 8 [facility] COMPLETE INC INC MINIMUM 3 VIEWS CLOSURE 8659 [facility] SKIN&SUBC 8 [facility] UTANEOUS INC INC TISSUE OTHER SITES SERVICES 58049 Antonio WOLF, Antonio PROVIDED 8 LUCIANO Link OFFICE PSC OTH/THN REG SCHED HOURS SBSQ 99499 [facility] 5 Y OF [facility]/DAY [place] 25 PEDIA MINUTES SBSQ 09237 [facility] 5 Y OF [facility]DAY [place] 25 PEDIA MINUTES SBSQ 84727 [facility] [place] [facility] PEDIA MIN[facility]ES Encounters Encounter Start End Date Code Location Performer Type Date HOSPITAL [facility] - 7 7 [facility] OUTPATIEN INC T OFFICE 10850 [facility] 7 7 [facility] T VISIT 5 INC MINUTES OFFICE 82129 [facility] JERMEI OUTPATIEN 6 6 PHYSICIAN PATRICK T VISIT S GROUP 15 MINUTES OFFICE 94832 [facility] SCIFRES OUTPATIEN 6 6 ANG ANG T VISIT 10 MINUTES OFFICE 26408 [facility] KALEY OUTPATIEN 6 6 PHYSICIAN T NEW 20 GROUP MINUTES OFFICE 97398 [facility] JEREMI OUTPATIEN 6 6 PHYSICIAN PATRICK T VISIT S GROUP 10 MINUTES HOSPITAL [facility] - 6 6 [facility] OUTPATIEN INC T HOSPITAL [facility] - 6 6 [facility] OUTPATIEN INC T HOSPITAL [facility] - 6 6 [facility] OUTPATIEN INC T HOSPITAL [facility] - 6 6 [facility] OUTPATIEN [facility] T OFFICE 67681 [facility] JEREMI OUTPATIEN 6 6 PHYSICIAN PATRICK T NEW S GROUP MINUTES HOSPITAL [facility]GAN - 6 6 [facility] OUTPATIEN INC T HOSPITAL KEEGAN - 6 6 [facility] OUTPATIEN [facility] T EMERGENCY 85294 [facility] BLOOD DEPT 6 6 PHYSICIAN PATRICK VISIT S, [facility] HIGH SEVERITY& THREAT [facility] KEEGAN - 6 6 [facility] OUTPATIEN [facility] EMERGENCY 74221 [facility] WOODS 6 6 PHYSICIAN LAURA BLOOM S, [facility] T VISIT MODERATE SEVERITY OFFICE 74117 [facility] OUTPATIEN 5 5 [facility] T NEW 10 [facility] MINUTES DEPT. EMERGENCY 69870 UNIVERSIT DEPT 4 4 Y VISIT HOSPITAL HIGH SEVERITY& THREAT [facility] UNIVERSIT - 4 4 Y OUT[facility]ANE [facility] T EMERGENCY 16632 ECKERLINE ECKERLINE 4 4 JR [facility] T VISIT HIGH/URGE NT SEVERITY OFFICE 67757 ROLANDO MARSHALL OUTPATIEN 4 4 SADAF SADAF T 45 MINUTES OFFICE 72569 [facility] OUTPATIEN 4 4 [facility] T VISIT TH DEPT HLTH DEPT 25 GENEVIEVE GENEVIEVE MINUTES OFFICE 59477 Antonio CANTU OUTPATIEN 8 8 LUCIANO Link T VISIT PSC 15 MINUTES OFFICE 63708 [facility] 8 8 FREDDIE Link T NEW 30 CLINIC OF MINUTES [facility] KEEGAN - 8 8 [facility] OUTPATIEN INC T EMERGENCY 47720 [facility] 8 8 [facility] T VISIT HIGH/URGE NT SEVERITY OFFICE 17406 GABRIEL RIOS OUTPATIEN 8 8 STEVEN Ambrocio T VISIT 15 MINUTES OFFICE 01324 Antonio CANTU OUTPATIHUNG 8 8 LUCIANO Link T VISIT PSC 15 MINUTES EMERGENCY 42833 [facility] SMALL, 8 8 [facility] T VISIT PROF SERV HIGH/URGE NT SEVERITY [facility] - 8 8 [facility] OUTPATIEN INC T OFFICE 46332 Antonio CANTU OUTPATIHUNG 8 8 LUCIANO Link T VISIT PSC 15 MINUTES OFFICE 01876 [facility]AT OUTPATIEN 6 6 Y OF T VISIT [place] 15 PEDIA MINUTES OFFICE 49561 [facility] KRI OUTPATIEN 6 6 Y OF T VISIT [place] 15 PEDIA MINUTES OFFICE 25610 [facility] KRI OUTPATIEN 5 5 Y OF T VISIT [place] 15 PEDIA MINUTES OFFICE 29143 [facility] HAT OUTPATIEN 5 5 Y OF T VISIT [place] 15 PEDIA MINUTES
--- OUTSIDE RECORDS SUMMARY | 2016-11-21 12:12 | External Medical Summary Rpt ---
Author Author , Organization [employer] Address Unknown Phone Unavailable Care Team Providers Care Auto Wheel Alignment Specialist Name Role Phone COBB, FELICITAS Nikolay, COBB, Unavailable Unavailable FELICITAS JOSE ELIAS KINGSLEY Unavailable Unavailable JANICE GAUTHIER, Unavailable Unavailable JANICE [facility] Unavailable Unavailable SERVICE, [facility] MARSHALL SADAF, MARSHALL Unavailable Unavailable SADAF MARSHALL SADAF, MARSHALL Unavailable Unavailable SADAF [facility] Unavailable Unavailable [place], [facility] KALEY NAVARRO Unavailable Unavailable [facility], [facility] Unavailable Unavailable [facility] [place] [facility] [place] ECKERLINE JR PARTH, Unavailable Unavailable ECKERLINE JR PARTH ECKERLINE JR PARTH, Unavailable Unavailable ECKERLINE JR APRTH [facility] Unavailable Unavailable DEPT., [facility] DEPT. JEREMI PATRICK, JEREMI Unavailable Unavailable [facility] Un[facility] Unavailable INC, [facility], Unavailable Unavailable [facility], Unavailable [facility]available [facility] STEVEN RIOS, Unavailable Unavailable STEVEN RIOS EMMETT P, Unavailable Unavailable ANIBAL GONZALES ADARSH HAT, ADARSH HAT Unavailable Unavailable [facility], Unavailable [facility]available [facility], [facility] ANDREW KRI, ANDREW KRI Unavailable Unavailable RENUSCH LAURA, RENUSCH Unavailable Unavailable LAURA SCIFRES, SCIFRES Unavailable Unavailable SCIFRES, SCIFRES Unavailable Unavailable SCIFRES ANG, SCIFRES Unavailable Unavailable ANG SCIFRES ANG, SCIFRES Unavailable Unavailable ANG ZOE POE, LUI, Unavailable Unavailable [facility], Unavailable Unavailable [facility] Unavailable Unavailable DEPT [facility] DEPT 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 Q69491 HORDEOLUM 05-06-2016 SCIFRES ANG EXTERNUM RIGHT LOWER EYELID N29128 HORDEOLUM 05-06-2016 [facility] EXTERNUM PHYSICIANS UNS EYE UNS GROUP EYELID H6121 IMPACTED 01-01-2016 [facility] CERUMEN PHYSICIAN RIGHT EAR GROUP H6690 OTITIS 01-01-2016 [facility] MEDIA PHYSICIAN UNSPECIFIED GROUP UNSPECIFIED EAR E119 TYPE 2 11-20-2015 [facility] DIABETES PHYSICIANS MELLITUS GROUP WITHOUT COMPLICATIO NS L0390 CELLULITIS 11-20-2015 [facility] UNSPECIFIED PHYSICIANS GROUP 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 N62130 OTHER LONG 11-19-2015 [facility] CURRENT INC DRUG THERAPY E663 OVERWEIGHT 11-16-2015 [facility] PHYSICIANS GROUP H73559 CUTANEOUS 11-14-2015 [facility] ABSCESS OF PHYSICIANS, LEFT LOWER PLLC LIMB B850 PEDICULOSIS 11-01-2015 [facility] DUE TO PHYSICIANS, PEDICULUS PLLC HUMANUS CAPITIS W51025 HORDEOLUM 11-01-2015 [facility] RIGHT LOWER INC EYELID I32403 HORDEOLUM 11-01-2015 [facility] LEFT LOWER INC EYELID I10530 CUTANEOUS 11-01-2015 [facility] ABSCESS OF PHYSICIANS, HEAD ANY PLLC PART EXCEPT FACE V220 SUPERVISION 09-11-2014 [facility] V7242 09-11-2014 [facility] EXAMINATION HEALTH OR TEST POSITIVE RESULT 632 MISSED 11-25-2013 MARSHALL SADAF 45716 UNSPEC 11-23-[address] [facility] SPONTANEOUS AB WITHOUT MENTION COMP 75193 DIAB W/O 11-22-2013 [facility] HOSPITAL II/UNS NOT STATED UNCNTRL 42420 UNSPEC 11-22-2013 [facility] HEMORRHAGE JR PARTH EARLY ANTEPARTUM 81832 OTHER 11-22-2013 [facility] SPECIFED JR [facility]TH COMPLICATIO N ANTEPARTUM 38372 ABDOMINAL 11-22-2013 [facility] PAIN, JR PARTH UNSPECIFIED SITE 7915 GLYCOSURIA 11-15-2013 MARSHALL SADAF 7916 ACETONURIA 11-15-2013 [facility]ALL SADAF 7919 OTHER 11-15-2013 [facility] SADAF NONSPECIFIC FINDING EXAMINATION OF URINE V239 UNSPECIFIED 11-14-2013 [facility] GENEVIEVE 7806 FEVER & OTH 01-28-2008 Antonio WOLF MD [facility] PHYSIOLOGIC DISTURBANCE S TEMP REG 0794 HUMAN 01-11-2008 [facility] [place] VIRUS IN CCE & UNS SITE 16311 MODERATE 01-11-2008 [facility] [place] OF CERVIX 38498 PAP SMER 01-11-2008 WOMEN'S CERV W/LW [facility] LES 1129 CANDIDIASIS 12-26-2007 WOMEN'S OF HEALTH UNSPECIFIED CLINIC OF [facility] 6264 IRREGULAR 12-26-2007 WOMEN'S MENSTRUAL HEALTH CYCLE [facility] 6262 EXCESSIVE 12-22-2007 [facility] INC MENSTRUATIO N 33612 UNSPECIFIED 12-14-2007 G[facility] INFECTIVE STEVEN Ambrocio OTITIS EXTERNA 3831 CHRONIC 12-14-2007 G[facility]EL MASTOIDITIS STEVEN Ambrocio 43589 ATROPHIC 12-14-2007 G[facility]EL FLACCID STEVEN Ambrocio TYMPANIC MEMBRANE 4660 ACUTE 08-14-2007 Antonio WILKINS MD PSC 16939 CLOSED 08-02-2007 [facility] DISLOCATION AMBULANCE OF WRIST SERVICE UNSPECIFIED PART 08754 OPEN WOUND 08-02-2007 [facility] WITHOUT HOSPITAL MENTION PROF SERV COMPLICATIO N 8820 OPEN WOUND 08-02-2007 [facility] HAND NO AMBULANCE FINGER SERVICE ALONE W/O MENTION COMP 920 CONTUSION 08-02-2007 [facility] MEDICAL SCALP AND IMAGING [facility] EYE 9221 CONTUSION 08-02-2007 [facility] PROF SERV 42753 CONTUSION 08-02-2007 [facility] PROF SERV 02780 CONTUSION 08-02-2007 [facility] PROF SERV 7295 PAIN IN 07-10-2007 Antonio SCHWARTZ MD PSC TISSUES OF LIMB 19185 OBESITY, 09-22-2005 [facility] PEDIA 7061 OTHER ACNE 09-22-2005 [facility] PEDIA 31943 OVERWEIGHT 06-30-2005 [facility] PEDIA 7831 ABNORMAL 02-03-2005 [facility] PEDIA 5770 ACUTE 08-30-2004 [facility] PANCREATITI [facility] S PEDIA Medications Na ND Rx Da Fi Fi Am Da Di Ph RX Ph St me C No te ll ll ou ys ag ar # ys at rm s nt no ma ic us Or Da si cy ia de te s n re d AZ 59 02 03 6. 5 00 NM Ac IT 76 -1 -1 00 00 L- ti HR 23 7- 7- 0 07 MA ve OM 06 20 20 47 RT YC 00 17 17 13 IN 1 29 PH AR 25 MA 0 CY MG #5 TA 91 BL ET FL 60 02 03 16 30 00 NM Ac UT 50 -1 -1 .0 00 L- ti IC 50 7- 7- 00 07 MA ve 82 20 20 47 RT ON 90 17 17 13 E 1 31 PH MO AR OP MA CY 50 #5 MC 91 G SP RA Y MO 00 02 03 10 5 00 NM Ac ED 14 -1 -1 .0 00 L- ti NI 39 7- 7- 00 07 MA ve SO 73 20 20 47 RT NE 80 17 17 13 5 33 PH 20 AR MA MG CY TA #5 BL 91 ET FL 55 02 03 1. 1 00 NM Ac UC 11 -2 -1 00 00 L- ti ON 10 0- 7- 0 07 MA ve AZ 14 20 20 47 RT OL 51 17 17 17 E 2 84 PH 15 AR 0 MA MG CY TA #5 BL 91 ET DO 00 12 01 20 10 00 NM Ac XY 71 -0 -0 .0 00 L- ti CY 30 9- 9- 00 07 MA ve CL 42 20 20 45 RT IN 95 16 17 75 E 0 61 PH MO AR NO MA CY 10 0 #5 MG 91 CA P FL 55 12 01 1. 1 00 NM Ac UC 11 -0 -0 00 00 L- ti ON 10 9- 9- 0 07 MA ve AZ 14 20 20 45 RT OL 51 16 17 75 E 2 63 PH 15 AR 0 MA MG CY TA #5 BL 91 ET 00 04 09 03 1. 15 EA [...] CY NT HI AN A 00 04 07 02 1. 15 EA 97 No Ac 14 -1 -[address] 56 t ti 52 0- 7- 0 SI 00 Av ve 36 20 20 DE ai 70 08 08 la 1 PH bl AR e MA CY OF CY NT HI AN A CI 00 07 07 00 7. 7 EA 98 No Ac MO 06 -1 -[address] 69 t ti OD 58 1- 7- 0 SI 54 Av ve EX 53 20 20 DE ai 30 08 08 la OT 2 PH bl IC AR e MA RICO CY SP EN OF SI CY ON NT HI AN A 00 04 06 [...] Procedure DOS Code Location Performer Comment IAADIADOO 87754 [facility] INFLUENZA INC INC OPHTH 72601 SCIFR SCIFRES MEDICAL 6 XM&EVAL COMPRHNSV ESTAB PT 1/> REMOVAL 20432 [facility] KALEY IMPACTED 6 PHYSICIAN [place] [address] [facility] INFUSION 6 [facility] THERAPY/P INC INC ROPHYLAXI S /DX 1ST TO 1 HR INJECTION J0878 [facility] DAPTOMYCI INC INC N 1 MG INJECTION J0878 [facility] DAPTOMYCI INC INC N 1 [place] [address] [facility] INFUSION 6 [facility] THERAPY/P INC INC ROPHYLAXI S /DX 1ST TO 1 [place] [address] [facility] INFUSION 6 [facility] THERAPY/P INC INC ROPHYLAXI S /DX 1ST TO 1 [place] [address] [facility] INFUSION 6 [facility] THERAPY INC INC PROPHYLAX IS/DX EA HOUR DRUG 46507 [facility] SCREEN 6 [facility] [place] [address] [facility]GAN INFUSION 6 [facility] THERAPY INC INC PROPHYLAX IS/DX EA HOUR DRUG 22158 [facility] ALLISON SCREEN [address] [facility] [place]IT[place] [address] [facility] INFUSION 6 [facility] THERAPY/P INC INC ROPHYLAXI S /DX 1ST TO 1 [place] [address] [facility] CALABRESEON INFUSION 6 [facility] THERAPY/P INC INC ROPHYLAXI S /DX 1ST TO 1 [place] [address] [facility] KEGEAN INFUSION 6 [facility] THERAPY INC INC PROPHYLAX IS/[place] [address] [facility]GAN INFUSION [address] [facility] THERAPY INC [place] [address] [facility] ALLISON INFUSION 6 [facility] THERAPY/P INC INC ROPHYLAXI S /DX 1ST TO 1 HR THERAPEUT 63705 [facility] IC [address] [facility] INJECTION INC INC IV PUSH EACH NEW DRUG HEMOGLOBI 57159 [facility]ISON N [address] [facility] GLYCOSYLA INC INC LIS A1C BLOOD 48482 [facility] COUNT [address] [facility] COMPLETE INC INC AUTO&AUTO DIFRNTL WBC SUSCEPTIB 46080 [facility] LTY STDY [address] [facility] ANTIMICRB INC INC IAL MICRO/AGA R DILUTJ INCISION 34570 [facility] BLOOD & 6 PHYSICIAN PATRICK DRAINAGE S, PLLC ABSCESS COMPLICAT ED/MULTIP LE CUL BACT 49497 [facility] XCPT [address] [facility] URINE INC INC BLOOD/STO OL AEROBIC ISOL CUL BACT 66636 [facility] AEROBIC [address] [facility] ADDL INC INC METHS DEFINITIV E EA ISOL INJECTION J2405 [facility]ISON [address] [facility] ONDANSETR INC INC ON HCL PER 1 MG COMPREHEN 33705 [facility] SIVE [address] [facility] METABOLIC INC INC PANEL INCISION 89238 [facility] RENUSCH & 6 PHYSICIAN LAURA DRAINAGE S, PLLC ABSCESS COMPLICAT ED/MULTIP LE INCISION 04708 [facility] & 6 [facility] DRAINAGE INC INC ABSCESS SIMPLE/SI NGLE URINE 07709 [facility] VISUAL DEPT. COLOR CMPRSN METHS US PREG 49758 ROLANDO MARSHALL UTERUS 4 SADAF SADAF REAL TIME W/IMAGE DCMTN TRANSVAG US PREG 71711 [facility] UTERUS 4 Y Y REAL TIME [facility] W/IMAGE DCMTN TRANSVAG GONADOTRO 63083 [facility] PIN 4 Y Y CHORIONIC [facility] QUANTITAT EVE BLOOD 77559 [facility] COUNT 4 Y Y COMPLETE [facility] AUTOMATED BLOOD 12788 [facility] TYPING 4 Y Y SEROLOGIC [facility] ABO URNLS DIP 70833 [facility] 4 Y Y STICK/TAB [facility] LET RGNT AUTO W/[place] [address] [facility] SURG 4 Y Y PATHOLOGY [facility] GROSS&PATRICK ROSCOPIC EXAM BLOOD 24526 [facility] TYPING 4 Y Y SEROLOGIC [facility] RH (D) URINE 95914 [facility] 4 Y Y TEST [facility] VISUAL COLOR CMPRSN METHS US PREG 42522 ROLANDO MARSHALL UTERUS 4 SADAF SADAF REAL TIME W/IMAGE DCMTN TRANSVAG URINE 96458 [facility] MARSHALL 4 SADAF SADAF TEST VISUAL COLOR CMPRSN METHS CULTURE 41931 COMBINED COMBINED BACTERIAL 4 PHYSICIAN PHYSICIAN S LA S LA QUANTTATI VE COLONY COUNT URINE SUSCEPTIB 39702 COMBINED COMBINED ILITY 4 PHYSICIAN PHYSICIAN STUDY S LA S LA ANTIMICRO BIAL DISK METHOD GLUC BLD 53341 [facility] GLUC MNTR 4 [facility] DISTRICT DEV TH [facility]PT [facility] DEPT CLEARED GENEVIEVE GENEVIEVE FDA SPEC HOME USE URINE 35347 [facility] 4 DISTRICT DISTRICT TEST TH DEPT TH DEPT VISUAL GENEVIEVE GENEVIEVE COLOR CMPRSN METHS COLLECTIO 10571 Antonio CANTU VENOUS 8 LUCIANO Link BLOOD PSC VENIPUNCT URE COLPOSCOP 07437 [facility] JORDYN, Y CERVIX 8 [facility] BX CERVIX CLINIC OF & ENDOCRV [place] [facility] PLLC CYTP 96137 [facility], SLCTV 8 [place] INC JANICE Weldon CELL ENHANCEME NT INTERPJ XCPT C/[place] [address] [facility], SURG 8 [place] INC JANICE Weldon PATHOLOGY GROSS&PATRICK ROSCOPIC EXAM SMR PRIM 55307 [facility] JORDYN, SRC WET 8 [facility] AGT [place] PLLC CULTURE 92949 [facility] BACTERIAL 8 [facility] INC INC QUANTTATI VE COLONY COUNT URINE URINE 75868 [facility] 8 [facility] TEST INC INC VISUAL COLOR CMPRSN METHS URNLS DIP 52391 [facility] 8 [facility] STICK/TAB INC INC LET REAGENT AUTO MICROSCOP Y BLOOD 04526 [facility] COUNT 8 [facility] COMPLETE INC INC AUTO&AUTO DIFRNTL WBC DEBRIDEME 83033 GABRIEL RIOS, NT 8 STEVEN Ambrocio MASTOIDEC NICOLA CAVITY SIMPLE COMPRE 83993 GABRIEL RIOS, AUDIOMETR 8 STEVEN Ambrocio Y THRESHOLD EVAL SP RECOGNIJ URINE 73783 [facility] TEST INC INC VISUAL COLOR CMPRSN METHS RADIOLOGI 85917 [facility] NDIAYE 8 MEDICAL ANIBAL P EXAMINATI IMAGING ON KNEE 3 ASSOCIATE VIEWS S SIMPLE 62437 [facility] SMALL, REPAIR 8 [facility] K/AX/SOWMYA PROF SERV T/TRUNK 2.5CM/< RADEX 36773 ODALYS GONZALES HAND 8 MEDICAL ANIBAL P MINIMUM 3 IMAGING VIEWS ASSOCIATE S RADEX 15049 [facility] GONZALES ELBOW 8 MEDICAL ANIBAL P COMPLETE IMAGING MINIMUM 3 ASSOCIATE VIEWS S RADIOLOGI 80706 Nikolay MARTIN EXAM 8 MEDICAL ANIBAL P CHEST 2 IMAGING VIEWS ASSOCIATE FRONTAL&L S ATERAL GROUND A0425 [facility] MILEAGE 8 AMBULANCE AMBULANCE PER SERVICE SERVICE STATUTE MILE AMBULANCE A0429 [facility] SERVICE 8 AMBULANCE AMBULANCE BLS SERVICE SERVICE EMERGENCY TRANSPORT CLOSURE 8659 [facility] SKIN&SUBC 8 [facility] UTANEOUS INC INC TISSUE OTHER SITES RADEX 91129 [facility] SPINE 8 [facility] CERVICAL INC INC 6 OR MORE VIEWS RADEX 30777 [facility] FOREARM 2 8 [facility] VIEWS INC INC SERVICES 52498 Antonio CANTU PROVIDED 8 LUCIANO Link OFFICE PSC OTH/THN REG SCHED HOURS SBSQ 54734 [facility] Y OF [facility]/DAY [place] 25 PEDIA MINUTES SBSQ 17697 [facility] Y OF [facility]/DAY [place] 25 PEDIA MINUTES SBSQ 89999 [facility] 5 Y OF [facility]/DAY [place] 15 PEDIA MINUTES Encounters Encounter Start End Date Code Location Performer Type Date HOSPITAL [facility] - 7 7 [facility] OUTPATIEN [facility] T OFFICE 19404 [facility] OUTPATIEN 7 7 [facility] T VISIT 5 INC MINUTES OFFICE 90883 [facility] SCIFRES OUTPATIEN 6 6 ANG ANG T VISIT 10 MINUTES OFFICE 08309 [facility] JEREMI OUTPATIEN 6 6 PHYSICIAN PATRICK T VISIT S GROUP 15 MINUTES OFFICE 10524 [facility] KALEY OUTPATIEN 6 6 PHYSICIAN T NEW 20 GROUP MINUTES OFFICE 50977 [facility] JEREMI OUTPATIEN 6 6 PHYSICIAN PATRICK T VISIT S GROUP 10 MINUTES HOSPITAL [facility]GAN - 6 6 [facility] OUTPATIEN [facility] HOSPITAL KEEGAN - 6 6 [facility] OUTPATIEN [facility] HOSPITAL KEEGAN - 6 6 [facility] OUTPATIEN INC T HOSPITAL KEEGAN - 6 6 [facility] OUTPATIEN [facility] T OFFICE 23008 [facility] OUTPATIEN 6 6 PHYSICIAN PATRICK T NEW 20 S GROUP [facility] KEEGAN - 6 6 MEM [facility] OUTPATIEN [facility] HOSPITAL KEEGAN - 6 6 [facility] OUTPATIEN [facility] T EMERGENCY 05628 [place] DEPT 6 6 MEM [facility] VISIT [facility] HIGH SEVERITY& THREAT [facility] KEEGAN - 6 6 [facility] OUTPATIEN [facility] EMERGENCY 78500 [facility] 6 6 [facility] DEPARTMEN [facility] T VISIT MODERATE SEVERITY OFFICE 08973 [facility] 5 5 [facility] 10 [facility] DEPT. EMERGENCY 76198 ECKERLINE ECKERLINE 4 4 [facility] T VISIT HIGH/URGE NT SEVERITY EMERGENCY 21911 [facility] DEPT 4 4 Y VISIT [facility] HIGH SEVERITY& THREAT [facility] UNIVERSIT - 4 4 Y [facility] T OFFICE 23115 ROLANDO MARSHALL OUTPATIEN 4 4 SADAF SADAF 45 MINUTES OFFICE 62277 [facility] OUTPATIEN 4 [facility] T VISIT HLTH DEPT HLTH DEPT 25 GENEVIEVE GENEVIEVE MINUTES OFFICE 94402 Antonio CANTU 8 8 LUCIANO Link T VISIT [facility] 15 MINUTES OFFICE 28025 [facility] 8 8 [facility] 30 CLINIC OF MINUTES [facility] KEEGAN - 8 8 [facility] OUTPATIEN [facility] T EMERGENCY 42961 [facility] 8 8 [facility] DEPARTMEN INC T VISIT HIGH/URGE NT SEVERITY OFFICE 28781 GABRIEL RIOS OUTPATIEN 8 8 STEVEN Ambrocio T VISIT 15 MINUTES OFFICE 75011 Antonio CANTU OUTPATIEN 8 8 LUCIANO Link T VISIT PSC 15 MINUTES EMERGENCY 08317 [facility] 8 8 [facility] DEPARTMEN INC T VISIT HIGH/URGE NT [facility] KEEGAN - 8 8 [facility] OUTPATIEN INC T OFFICE 91175 Antonio CANTU OUTPATIEN 8 8 LUCIANO Link T VISIT PSC 15 MINUTES OFFICE 04672 [facility] ADARSH HAT OUTPATIEN 6 6 Y OF T VISIT [place] 15 PEDIA MINUTES OFFICE 83082 [facility] ANDREW KRI OUTPATIEN 6 6 Y OF T VISIT [place] 15 PEDIA MINUTES OFFICE 30782 [facility] ANDREW KRI OUTPATIEN 5 5 Y OF T VISIT [place] 15 PEDIA MINUTES OFFICE 41185 [facility] ADARSH HAT OUTPATIEN 5 5 Y OF T VISIT [place] 15 PEDIA MINUTES
--- OUTSIDE RECORDS SUMMARY | 2016-11-21 12:12 | External Medical Summary Rpt ---
Author Author , Organization [employer] Address Unknown Phone Unavailable Care Team Providers Care Low Vision Therapist Name Role Phone COBB, FELICITAS Nikolay, COBB, Unavailable Unavailable FELICITAS JOSE ELIAS KINGSLEY Unavailable Unavailable JANICE GAUTHIER, Unavailable Unavailable JANICE [facility] Unavailable Unavailable SERVICE, [facility] MARSHALL SADAF, MARSHALL Unavailable Unavailable SADAF MARSHALL SADAF, MARSHALL Unavailable Unavailable SADAF [facility] Unavailable Unavailable [place], [facility] KALEY NAVARRO Unavailable [facility]available [facility], [facility] Unavailable Unavailable [facility] [place] [facility] [place] [facility]CKERLINE JR PARTH, Unavailable Unavailable [facility], Unavailable Unavailable [facility] Unavailable Unavailable DEPT., [facility]. JEREMI PATRICK, JEREMI Unavailable Unavailable [facility] Un[facility] Un[facility], [facility], Unavailable Unavailable [facility], Unavailable Unavailable [facility] STEVEN RIOS, Unavailable Unavailable [...] Unavailable ANG ZOE POE, LUI, Unavailable Unavailable [facility], Unavailable Unavailable [facility] Unavailable Unavailable DEPT [facility] DEPT [facility] Unavailable Unavailable DEPT [facility] DEPT GENEVIEVE CARMEN PATRICK, CARMEN Unavailable Unavailable PATRICK Antonio WOLF, LUCIANO, Unavailable Unavailable Antonio C Purpose Continuity of Care Document - 08-28-2004 through 2016 Problems Code Diagnosis DOS Provider Status J320 CHRONIC 07-22-2016 [facility] SINUSITIS INC 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 REGULAR 05-13-2016 [facility] ASTIGMATISM BILATERAL G68228 HORDEOLUM 05-06-2016 [facility] ANG EXTERNUM RIGHT LOWER EYELID Z69038 HORDEOLUM 05-06-2016 [facility] EXTERNUM PHYSICIANS UNS EYE UNS GROUP EYELID H6121 IMPACTED 01-01-2016 [facility] CERUMEN PHYSICIAN RIGHT EAR GROUP H6690 OTITIS 01-01-2016 [facility] MEDIA PHYSICIAN UNSPECIFIED GROUP UNSPECIFIED EAR E119 TYPE 2 11-20-2015 [facility] DIABETES PHYSICIANS MELLITUS GROUP WITHOUT COMPLICATIO NS L0390 CELLULITIS 11-20-2015 [facility] UNSPECIFIED PHYSICIANS GROUP Z792 MEDICAL RESEARCHER 11-20-2015 [facility] OF INC ANTIBIOTICS L91033 OTHER LONG 11-19-2015 [facility] CURRENT INC DRUG THERAPY E663 OVERWEIGHT 11-16-2015 [facility] PHYSICIANS GROUP S41447 CUTANEOUS 11-14-2015 [facility] ABSCESS OF PHYSICIANS, LEFT LOWER PLLC LIMB B850 PEDICULOSIS 11-01-2015 [facility] DUE TO PHYSICIANS, PEDICULUS PLLC HUMANUS CAPITIS C72585 HORDEOLUM 11-01-2015 [facility] RIGHT LOWER INC EYELID J12345 HORDEOLUM 11-01-2015 [facility] LEFT LOWER INC EYELID I41525 CUTANEOUS 11-01-2015 [facility] ABSCESS OF PHYSICIANS, HEAD ANY PLLC PART EXCEPT FACE V220 SUPERVISION 09-11-2014 [facility] V7242 09-11-2014 [facility] EXAMINATION HEALTH OR TEST POSITIVE RESULT 632 MISSED 11-25-2013 MARSHALL SADAF 01338 UNSPEC 11-23-2013 [facility] SPONTANEOUS AB WITHOUT MENTION COMP 12361 DIAB W/O 11-22-2013 [facility]OSPITAL II/UNS NOT STATED UNCNTRL 34371 UNSPEC 11-22-2013 [facility] HEMORRHAGE [facility] EARLY ANTEPARTUM 59999 OTHER 11-22-2013 [facility] SPECIFED [facility] COMPLICATIO N ANTEPARTUM 03593 ABDOMINAL 11-22-2013 [facility] PAIN, JR [facility] UNSPECIFIED SITE 7915 GLYCOSURIA 11-15-2013 MARSHALL SADAF 7916 ACETONURIA 11-15-2013 [facility] SADAF 7919 OTHER 11-15-2013 [facility] SADAF NONSPECIFIC FINDING EXAMINATION OF URINE V239 UNSPECIFIED 11-14-2013 [facility] HLTH DEPT GENEVIEVE 7806 FEVER & OTH 01-28-2008 Antonio WOLF MD [facility] PHYSIOLOGIC DISTURBANCE S TEMP REG 0794 HUMAN 01-11-2008 [facility] [place] VIRUS IN CCE & UNS SITE 85824 MODERATE 01-11-2008 [facility] [place] OF CERVIX 22494 PAP SMER 01-11-2008 WOMEN'S CERV W/LW [facility]ALTH [facility] INTRAEPITH [facility] LES 1129 CANDIDIASIS 12-26-2007 WOMEN'S OF HEALTH UNSPECIFIED CLINIC OF SITE [facility] 6264 IRREGULAR 12-26-2007 WOMEN'S MENSTRUAL HEALTH CYCLE [facility] 6262 EXCESSIVE 12-22-2007 [facility] INC MENSTRUATIO N 60007 UNSPECIFIED 12-14-2007 [facility] INFECTIVE STEVEN Ambrocio OTITIS EXTERNA 3831 CHRONIC 12-14-2007 G[facility] MASTOIDITIS STEVEN Ambrocio 76545 ATROPHIC 12-14-2007 [facility] FLACCID STEVEN Ambrocio TYMPANIC MEMBRANE 4660 ACUTE 08-14-2007 Antonio WILKINS MD PSC 53188 CLOSED 08-02-2007 [facility] DISLOCATION AMBULANCE OF WRIST SERVICE UNSPECIFIED PART 63708 OPEN WOUND 08-02-2007 [facility] WITHOUT HOSPITAL MENTION PROF SERV COMPLICATIO N 8820 OPEN WOUND 08-02-2007 [facility] HAND NO AMBULANCE FINGER SERVICE ALONE W/O MENTION COMP 920 CONTUSION 08-02-2007 [facility] MEDICAL SCALP AND IMAGING [facility] EYE 9221 CONTUSION 08-02-2007 [facility] PROF SERV 30063 CONTUSION 08-02-2007 [facility] EL[facility]OW [facility] PROF SERV 82665 CONTUSION 08-02-2007 [facility] PROF SERV 7295 PAIN IN 07-10-2007 Antonio SCHWARTZ MD PSC TISSUES OF LIMB 68864 OBESITY, 09-22-2005 [facility] PEDIA 7061 OTHER ACNE 09-22-2005 [facility] PEDIA 93697 OVERWEIGHT 06-30-2005 [facility] PEDIA 7831 ABNORMAL 02-03-2005 [facility] PEDIA 5770 ACUTE 08-30-2004 [facility]CREATITI [facility] S PEDIA Medications Na ND Rx Da Fi Fi Am Da Di Ph RX Ph St me C No te ll ll ou ys ag ar # ys at rm s nt no ma ic us Or Da si cy ia de te s n re d AZ 59 02 03 6. 5 00 OR Ac IT 76 -1 -1 00 00 L- ti HR 23 7- 7- 0 07 MA ve OM 06 20 20 47 RT YC 00 17 17 13 IN 1 29 PH AR 25 MA 0 CY MG #5 TA 91 BL ET FL 60 02 03 16 30 00 OR Ac UT 50 -1 -1 .0 00 L- ti IC 50 7- 7- 00 07 MA ve 82 20 20 47 RT ON 90 17 17 13 E 1 31 PH LA AR OP MA CY 50 #5 MC 91 G SP RA Y LA 00 02 03 10 5 00 OR Ac ED 14 -1 -1 .0 00 L- ti NI 39 7- 7- 00 07 MA ve SO 73 20 20 47 RT NE 80 17 17 13 5 33 PH 20 AR MA MG CY TA #5 BL 91 ET FL 55 02 03 1. 1 00 OR Ac UC 11 -2 -1 00 00 L- ti ON 10 0- 7- 0 07 MA ve AZ 14 20 20 47 RT OL 51 17 17 17 E 2 84 PH 15 AR 0 MA MG CY TA #5 BL 91 ET DO 00 12 01 20 10 00 OR Ac XY 71 -0 -0 .0 00 L- ti CY 30 9- 9- 00 07 MA ve CL 42 20 20 45 RT IN 95 16 17 75 E 0 61 PH MO AR NO MA CY 10 0 #5 MG 91 CA P FL 55 12 01 1. 1 00 OR Ac UC 11 -0 -0 00 00 [...] 00 7. 7 EA 98 No Ac LA 06 -1 -[address] 69 t [...] Procedure DOS Code Location Performer Comment IAADIADOO 76591 [facility] INFLUENZA INC INC OPHTH 56002 SCIFR SCIFRES MEDICAL 6 XM&EVAL COMPRHNSV ESTAB PT 1/> REMOVAL 13786 [facility] KALEY IMPACTED 6 PHYSICIAN [place] [address] [facility] INFUSION 6 [facility] H[facility] THERAPY/P INC INC ROPHYLAXI S /DX 1ST TO 1 HR INJECTION J0878 [facility] DAPTOMYCI INC INC N 1 MG INJECTION J0878 [facility] DAPTOMYCI INC INC N 1 [place] [address] [facility] INFUSION 6 [facility] THERAPY/P INC INC ROPHYLAXI S /DX 1ST TO 1 [place] [address] [facility] INFUSION 6 [facility] THERAPY/P INC INC ROPHYLAXI S /DX 1ST TO [place] [address] [facility] INFUSION 6 [facility] THERAPY INC INC PROPHYLAX IS/DX EA HOUR DRUG 43455 [facility] SCREEN 6 [facility] [place] [address] [facility]GAN INFUSION 6 [facility] THERAPY INC INC PROPHYLAX IS/DX EA HOUR DRUG 11588 [facility] SCREEN 6 [facility] [place] [address] [facility] INFUSION 6 [facility] THERAPY/P INC INC ROPHYLAXI S /DX 1ST TO 1 [place] [address] [facility] CALABRESEON INFUSION 6 [facility] THERAPY/P INC INC ROPHYLAXI S /DX 1ST TO 1 [place] [address] [facility]EEGAN INFUSION 6 [facility] THERAPY INC INC PROPHYLAX IS/[place] [address] [facility] INFUSION 6 [facility] THERAPY INC [place] [address] [facility] INFUSION 6 [facility] THERAPY/P INC INC ROPHYLAXI S /DX 1ST TO 1 HR THERAPEUT 03405 [facility] IC 6 [facility] INJECTION INC INC IV PUSH EACH NEW DRUG HEMOGLOBI 40148 [facility] N 6 [facility] GLYCOSYLA INC INC LIS A1C BLOOD 32613 [facility] COUNT 6 [facility] COMPLETE INC INC AUTO&AUTO DIFRNTL WBC SUSCEPTIB 47280 [facility] LTY STDY 6 [facility] ANTIMICRB INC INC IAL MICRO/AGA R DILUTJ INCISION 28006 [facility] BLOOD & 6 PHYSICIAN PATRICK DRAINAGE S, PLLC ABSCESS COMPLICAT ED/MULTIP LE CUL BACT 59860 [facility] XCPT 6 [facility] URINE INC INC BLOOD/STO OL AEROBIC ISOL CUL BACT 14648 [facility] AEROBIC 6 [facility] ADDL INC INC METHS DEFINITIV E EA ISOL INJECTION J2405 [facility] 6 [facility] ONDANSETR INC INC ON HCL PER 1 MG COMPREHEN 56985 [facility] SIVE 6 [facility] METABOLIC INC INC PANEL INCISION 00488 [facility] RENUSCH & 6 PHYSICIAN LAURA DRAINAGE S, PLLC ABSCESS COMPLICAT ED/MULTIP LE INCISION 13652 [facility] & 6 [facility] DRAINAGE INC INC ABSCESS SIMPLE/SI NGLE URINE 29031 [facility] [place] [address] [facility] VISUAL DEPT. COLOR CMPRSN METHS US PREG 57299 ROLANDO MARSHALL UTERUS 4 SADAF SADAF REAL TIME W/IMAGE DCMTN TRANSVAG US PREG 37039 [facility] UTERUS 4 Y Y REAL TIME [facility] W/IMAGE DCMTN TRANSVAG GONADOTRO 92249 [facility] PIN 4 Y Y CHORIONIC [facility] QUANTITAT EVE BLOOD 97748 [facility] COUNT 4 Y Y COMPLETE [facility] AUTOMATED BLOOD 36953 [facility] TYPING 4 Y Y SEROLOGIC [facility] ABO URNLS DIP 57069 [facility] 4 Y Y STICK/TAB [facility] LET RGNT AUTO W/[place] [address] [facility] SURG 4 Y Y PATHOLOGY [facility] GROSS&PATRICK ROSCOPIC EXAM BLOOD 02054 [facility] TYPING 4 Y Y SEROLOGIC [facility] RH (D) URINE 06051 [facility] 4 Y Y TEST [facility] VISUAL COLOR CMPRSN METHS US PREG 82227 ROLANDO MARSHALL UTERUS 4 SADAF SADAF REAL TIME W/IMAGE DCMTN TRANSVAG URINE 16385 [facility] MARSHALL 4 SADAF SADAF TEST VISUAL COLOR CMPRSN METHS CULTURE 72795 COMBINED COMBINED BACTERIAL 4 PHYSICIAN PHYSICIAN S LA S LA QUANTTATI VE COLONY COUNT URINE SUSCEPTIB 73533 COMBIN[facility] COMBINED ILITY 4 PHYSICIAN PHYSICIAN STUDY S LA S LA ANTIMICRO BIAL DISK METHOD GLUC BLD 18608 [facility] GLUC MNTR 4 [facility] DISTRICT DEV TH DEPT [facility] DEPT CLEARED GENEVIEVE GENEVIEVE FDA SPEC HOME USE URINE 15997 [facility] 4 DISTRICT DISTRICT TEST TH DEPT TH DEPT VISUAL GENEVIEVE GENEVIEVE COLOR CMPRSN METHS COLLECTIO 98588 Antonio CANTU VENOUS 8 LUCIANO Link BLOOD PSC VENIPUNCT URE COLPOSCOP 12545 [facility] JORDYN, Y CERVIX 8 [facility] BX CERVIX CLINIC OF & ENDOCRV [place] CURRETAGE PLLC CYTP 87208 [facility], SLCTV 8 [place] INC JANICE Weldon CELL ENHANCEME [place] INTER[place] XCP[place] C/[place] [address] [facility], SURG 8 [place] INC JANICE Weldon PATHOLOGY GROSS&PATRICK ROSCOPIC EXAM SMR PRIM 12076 [facility]OMEN'S JORDYN, SRC WET 8 [facility] AGT [place] PLLC CULTURE 98242 [facility] BACTERIAL 8 [facility] INC INC QUANTTATI VE COLONY COUNT URINE URINE 31436 [facility] 8 [facility] TEST INC INC VISUAL COLOR CMPRSN METHS URNLS DIP 56419 [facility] 8 [facility] STICK/TAB INC INC LET REAGENT AUTO MICROSCOP Y BLOOD 31660 [facility] COUNT 8 [facility] COMPLETE INC INC AUTO&AUTO DIFRNTL WBC DEBRIDEME 57412 GABRIEL RIOS, NT 8 STEVEN Ambrocio MASTOIDEC NICOLA CAVITY SIMPLE COMPRE 38562 GABRIEL RIOS, AUDIOMETR 8 STEVEN Ambrocio Y THRESHOLD EVAL SP RECOGNIJ URINE 78477 [facility] 8 [facility] TEST INC INC VISUAL COLOR CMPRSN METHS RADIOLOGI 04575 [facility] NDIAYE 8 MEDICAL ANIBAL P EXAMINATI IMAGING ON KNEE 3 ASSOCIATE VIEWS S SIMPLE 67455 [facility] SMALL, REPAIR 8 [facility] K/AX/SOWMYA PROF SERV T/TRUNK 2.5CM/< RADEX 97086 ODALYS GONZALES HAND 8 MEDICAL ANIBAL P MINIMUM 3 IMAGING VIEWS ASSOCIATE S RADEX 29126 [facility] GONZALES ELBOW 8 MEDICAL ANIBAL P COMPLETE IMAGING MINIMUM 3 ASSOCIATE VIEWS S RADIOLOGI 74882 Nikolay MARTIN EXAM 8 MEDICAL ANIBAL P CHEST 2 IMAGING VIEWS ASSOCIATE FRONTAL&L S ATERAL GROUND A0425 [facility] MILEAGE 8 AMBULANCE AMBULANCE PER SERVICE SERVICE STATUTE MILE AMBULANCE A0429 [facility] SERVICE 8 AMBULANCE AMBULANCE BLS SERVICE SERVICE EMERGENCY TRANSPORT CLOSURE 8659 [facility] SKIN&SUBC 8 [facility] UTANEOUS INC INC TISSUE OTHER SITES RADEX 91252 [facility] SPINE 8 [facility] CERVICAL INC INC 6 OR MORE VIEWS RADEX 38771 [facility] FOREARM 2 8 [facility] VIEWS INC INC SERVICES 05572 Antonio CANTU PROVIDED 8 LUCIANO Link OFFICE PSC OTH/THN REG SCHED HOURS SBSQ 90767 [facility] 5 Y OF [facility]/DAY [place] 25 PEDIA MINUTES SBSQ 25421 [facility] 5 Y [facility]/DAY [place] 25 PEDIA MINUTES SBSQ 27354 [facility] 5 Y OF [facility]/DAY [place] 15 PEDIA MINUTES Encounters Encounter Start End Date Code Location Performer Type Date HOSPITAL [facility] - 7 7 [facility] OUTPATIEN [facility] T OFFICE 56226 [facility] OUTPATIEN 7 7 [facility] T VISIT 5 INC MINUTES OFFICE 90293 SCIFRES SCIFRES OUTPATIEN 6 6 ANG ANG T VISIT 10 MINUTES OFFICE 32087 [facility] JEREMI OUTPATIEN 6 6 PHYSICIAN PATRICK T VISIT S GROUP 15 MINUTES OFFICE 91952 [facility] KALEY OUTPATIEN 6 6 PHYSICIAN T NEW 20 GROUP MINUTES OFFICE 90287 [facility] JEREMI OUTPATIEN 6 6 PHYSICIAN PATRICK T VISIT S GROUP 10 MINUTES HOSPITAL [facility] - 6 6 [facility] - 6 6 [facility] - 6 6 [facility] OUTPATIEN INC T HOSPITAL [facility] - 6 6 [facility] OUTPATIEN [facility] T OFFICE 55032 [facility] 6 6 PHYSICIAN PATRICK T NEW 20 S GROUP [facility] KEEGAN - 6 6 [facility] OUTPATIEN [facility] HOSPITAL KEEGAN - 6 6 [facility] OUTPATIEN [facility] T EMERGENCY 71889 [place] DEPT 6 6 [facility] VISIT [facility] HIGH SEVERITY& THREAT [facility] KEEGAN - 6 6 [facility] OUTPATIEN [facility] EMERGENCY 63212 [facility] 6 6 [facility] DEPARTMEN [facility] T VISIT MODERATE SEVERITY OFFICE 18643 [facility] 5 5 [facility] [address] [facility] DEPT. EMERGENCY 86344 ECKERLINE ECKERLINE 4 4 JR [facility] T VISIT HIGH/URGE NT SEVERITY EMERGENCY 61636 [facility]PT 4 4 Y VISIT [facility] HIGH SEVERITY& THREAT [facility] UNIVERSIT - 4 4 Y [facility] T OFFICE 63284 ROLANDO [facility]SHALL OUTPATIEN 4 4 SADAF SADAF 45 MINUTES OFFICE 43718 [facility] OUTPATIEN 4 4 [facility] T VISIT HLTH DEPT HLTH DEPT 25 GENEVIEVE GENEVIEVE MINUTES OFFICE 17065 Antonio CANTU 8 8 LUCIANO Link T VISIT [facility] 15 MINUTES OFFICE 75897 [facility] Y[facility] COBB 8 8 [facility] 30 CLINIC OF MINUTES [facility] KEEGAN - 8 8 [facility] OUTPATIEN [facility] T EMERGENCY 50878 [facility] 8 8 [facility] DEPARTMEN INC T VISIT HIGH/URGE NT SEVERITY OFFICE 93673 GABRIEL RIOS OUTPATIEN 8 8 STEVEN Ambrocio T VISIT 15 MINUTES OFFICE 31082 Antonio CANTU OUTPATIEN 8 8 LUCIANO Link T VISIT PSC 15 MINUTES EMERGENCY 19103 [facility] 8 8 [facility] DEPARTMEN INC T VISIT HIGH/URGE NT [facility] KEEGAN - 8 8 [facility] OUTPATIEN INC T OFFICE 61960 Antonio CANTU OUTPATIEN 8 8 LUCIANO Link T VISIT PSC 15 MINUTES OFFICE 23736 [facility]AT OUTPATIEN 6 6 Y OF T VISIT [place] 15 PEDIA MINUTES OFFICE 11697 [facility]RI OUTPATIEN 6 6 Y OF T VISIT [place] 15 PEDIA MINUTES OFFICE 00417 [facility] K[facility] OUTPATIEN 5 5 Y OF T VISIT [place] 15 PEDIA MINUTES OFFICE 48163 [facility]AT OUTPATIEN 5 5 Y OF T VISIT [place] 15 PEDIA MINUTES
--- OUTSIDE RECORDS SUMMARY | 2016-11-21 12:13 | External Medical Summary Rpt ---
Author Author , Organization [employer] Address Unknown Phone Unavailable Purpose Continuity of Care Document - 06-15-2001 through 2016 Immunization Name Date Route CVX Reacti Commen Provid Is Given on t er Refuse d Hep B, Histor H149 No 2004 ical ped/ad Inform ol ation - Source Unspec ified Hep B, Histor H149 No 2001 ical ped/ad Inform ol ation - Source Unspec ified Hep B, Histor H149 No 2001 ical ped/ad Inform ol ation - Source Unspec ified
--- NOTE | 2016-11-21 12:30 | Urgent Treatment Center Report ---
History of Present Issue Date/Time Seen by Provider 11/21/16 1223 Visit Reason Pt arrived:Walked Presenting Problem:SPIDER BITES LEFT LEG. STEPPED IN SPIDER NEST. Location if Accident: Onset of symptoms date/time:11/21/16 or onset unknown for: Have you (or family members/close friends) recently traveled outside the [place]? N If Yes, where/when: Have you had exposure to infectious disease within the past month? TB? Other? Specify: c/o spider bites to back of left leg. Stepped in spider's nest approx 2 hours ago while cleaning out shed. Father thinks was brown recluse but no one is sure. no pain intially and denies pain now, "just feels weird". Isn't sure what to do. Jumped in shower immediately when it happened. "They were all so tiny and all over my leg". Hasn't taken or tried anything else. "Not even sure I need to be here. i just freaked out." Source patient Exam Limitations no limitations ALLERGIES Coded Allergies: penicillin G (11/01/15) Home Medications Active Scripts Azithromycin (Zithromycin (Z-ESPERANZA) 250MG Tab) 250 MG PO DAILY #6 TAB Prov: 07/22/16 Fluticasone Propionate (Flonase 50 Mcg Nasal [place]) 2 SPRAY NA DAILY #1 BOT Prov: 07/22/16 Prednisone (Prednisone 20MG) 20 MG PO BID #10 TAB Prov: 07/22/16 History Medical History General CAD? No Angina: No [place]: No Hypertension? No Hyperlipidemia? No CHF? No DVT? No PE? No COPD? No Asthma? No Anemia? No GERD? No Gastric ulcers? No GI Bleed? No Hernia? No Thyroid Problems? No Hypothyroidism? No CVA? No Seizures? No Diabetes? No Renal Insuffiency? No UTI? Yes Stones? No GB Disease: Yes Nephritic Syndrome? No Asplenia? No Hepatitis? No Sickle Cell Disease? No Arthritis? No Migraines? No Cataracts? No Glaucoma? No MRSA? No HIV? No TB? No Anxiety? No Depression? No Cancer? No More? Yes Additional hx: PRE-ECLAMPSIA Immunization HX Ped.Immunizations UTD Yes DT/Tetanus Unknown Flu NEVER Pneumonia NEVER Surgical Hx Previous Surgery?Y TONSILS AND ADENOIDS APPENDECTOMY WISDOM TEETH L [employer] TE[employer]ER Hx LMP 1 Week Ago Family History Family HX Diabetes Yes CAD Yes Hypertension Yes Hyperlipidemia Yes Cancer Yes TB No Social History Smoking Hx Smoker: Never Smoker Tobacco: No Are you/the child exposed to second-hand smoke: No Alcohol Alcohol: No Review of Systems All Other Systems Reviewed and Negative Constitutional denies fever, denies malaise, denies weakness ENT denies: throat swelling. Respiratory denies shortness of breath Cardiovascular denies chest pain Gastrointestinal denies nausea, denies vomiting Musculoskeletal denies joint pain, denies joint swelling, denies muscle pain, denies muscle stiffness Skin see HPI Psychiatric/Neurological denies headache, denies numbness, denies tingling Physical Exam Vital Signs Vital Signs Date Time Temp Pulse Resp B/P Pulse O2 O2 Flow FiO2 Ox Delivery Rate 11/21 1244 97.9 98 18 139/85 98 11/21 1205 97.9 98 18 139/85 98 General Appearance normal appearance, no apparent distress Respiratory Status No: respiratory distress. Cardiovascular no peripheral edema Back gait normal Strength 5 Lower Ext (L), 5 Lower Ext (R) Neurologic alert Skin approx five less than 1mm red circles to posterior thigh and lower leg without any obvious break in skin or surrounding erythema. [id number] erythematous lesion w/ scabbed center to left lower leg & 3cm x 1cm erythematous lesion w/ scabbed center to posterior thigh. both without drainage, heat, sign of infection. Lymphatic no adenopathy Medical Decision Making LABS/Meds/Orders Pt receiving controlled substance in ED? No Results/Orders Current Medication Orders Sig/Jose F Start time Last Medication Dose Route Stop Time Status Admin Diphtheria/Pertussis/ 0.5 ML ONCE ONE 11/21 1230 DC 11/21 Tetanus Vacc IM 11/21 1231 1234 Diphtheria/Pertussis/ 0 .STK-MED ONE 11/21 1230 DC Tetanus Vacc IM Consult MD Physician Consult Consult/PCP Dr Mcghee Reason Pt. Condition Comments suggested NSAIDs, antihistamines and follow up tomorrow for wound check. Departure Departure Time of Disposition 1233 Disposition DC Home or Self Care(routine) Clinical Impression Primary Impression: Accidental spider bite Condition STABLE Referrals Lou CHRISTENSEN,Miki Palafox (Family) Call their office today. Schedule a wound recheck appt for tomorrow. IF you cannot get in there tomorrow, follow up at [facility]. Periodic wound re-checks will be very important. Patient Instructions DI for Spider Bites Additional Instructions Clean really well w/ soap and water. Elevate Ice 15-20 mins 3-4 times a day Benadryl 25-50mg every 4-6 hours but if causes too much drowsiness, zyrtec in the morning and if necessary, benadryl at bedtime. Just remember benadryl causes drowsiness so no driving or operating machinary. We updated your tetanus shot in clinic. This contained pertussis vaccine as well. * Monitor VERY closely. Outlined redness so that you can monitor easier. FU immediately for new or worsening symptoms ( including but not limited to redness , swelling, red streaking, fever, chills). You need a wound re-check tomorrow. Be sure to call your PCP today. * No additional anti-inflammatories like motrin, aleve, advil with the naproxen BID. You CAN still take Tylenol every 4 hours as needed if you need something more for pain. Discharge Counseling Counseled pt/family regarding diagnosis, medications/RX, home care, follow up needs Prescriptions Current Visit Scripts Naproxen (EC-Naprosyn) 375 MG PO BID #14 ECT take with food at 1330
[2016-11-21] MEDS ORDERED: EC NAPROSYN375 MG PO (12:39)
[2016-11-21 12:44] VITALS: BP 139/85
== END 2016-11-21 12:51 | disposition home or self-care (01) ==
LOC: UTC 11:58
DX: T63.301A Toxic effect of unspecified spider venom, accidental (unintentional), initial encounter (principal); Y92.007 Garden or yard of unspecified non-institutional (private) residence as the place of occurrence of the external cause; Z23 Encounter for immunization

== ENCOUNTER 2017-02-28 20:52 | Emergency (ER) | payer MEDICAID ==
[~2017-02-28] VITALS: Ht 167.6 cm; Wt 88.9 kg
[~2017-02-28 20:52] MED LIST changes: +EC NAPROSYN375 MG PO
[2017-02-28] MEDS ORDERED: PRENATAL PLUS1 TA1 PO (21:06)
[2017-02-28] MEDS ORDERED: NOVOLOG FLEX100 U/ML SC (21:08)
[2017-02-28 21:31] LABS: LYMPH % 28.6 % (10-50.0)
[2017-02-28 21:32] LABS: LYMPH # 2.5 K/mm3 (0.7-4.5)
--- NOTE | 2017-02-28 21:32 | Emergency Room Report ---
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 N Clinical Suspician of Infection? N Mental Status: 1 - Regular (Normal Baseline) Sepsis Risk:Low Sepsis Risk Have you (or family members/close friends) recently traveled outside the [place]? N If Yes, where/when: Have you had exposure to infectious disease within the past month? N TB? Other? Specify: Source patient, RN notes reviewed, family, old records Exam Limitations no limitations Comment pt is about 6 weeks preg and is having abn vag bleeding with cramps - seen at [facility] ed today with u/s and exam with blood work- records obtained and reviewed- she has inc sx since that time - Cardiac Chest Pain Chest pain indicative of cardiac No Timing/Duration this evening Severity moderate ALLERGIES Coded Allergies: penicillin G (11/01/15) Home Medications Reported Medications MULTIVIT-MIN W/FE-FA ( Multivitamin Tablet) 1 TAB PO DAILY Insulin Aspart, Recombinant (Novolog Flexpen) 2 UNITS SC Q6HP PRN DIABETES History Medical History General CAD? No Angina: No [place]: No Hypertension? No Hyperlipidemia? No CHF? No DVT? No PE? No COPD? No Asthma? No Anemia? No GERD? No Gastric ulcers? No GI Bleed? No Hernia? No Thyroid Problems? No Hypothyroidism? No CVA? No Seizures? No Diabetes? Yes Insulin Dependent: No Insulin Pump: No Home FSBS? No Renal Insuffiency? No End Stage Renal Disease? No UTI? Yes Stones? No GB Disease: Yes Nephritic Syndrome? No Asplenia? No Hepatitis? No Sickle Cell Disease? No Arthritis? No Migraines? No Cataracts? No Glaucoma? No MRSA? No HIV? No TB? No Anxiety? No Depression? No Cancer? No More? Yes Additional hx: PRE-ECLAMPSIA - GESTATIONAL DM Immunization Hx DT/Tetanus Unknown Flu NEVER Pneumonia NEVER Surgical Hx Previous Surgery?Y TONSILS AND ADENOIDS APPENDECTOMY WISDOM TEETH L EARDRUM CAFE LEAD Hx LMP 1 Month Ago Est.Due Date [id number] OB DR CAMACHO ELLIS Comment [facility] Family History Family Hx Diabetes Yes CAD Yes Hypertension Yes Hyperlipidemia Yes Cancer Yes TB No Social History Smoking Hx Smoker: Never Smoker Tobacco: No Alcohol Alcohol: No Drugs none Review of Systems All Other Systems Reviewed and Negative Constitutional denies fever Eyes denies drainage ENT denies: ear discharge, epistaxis, throat pain. Respiratory denies cough, denies shortness of breath, denies wheezing Cardiovascular denies chest pain, denies syncope Gastrointestinal denies abdominal pain, denies diarrhea, denies vomiting Genitourinary see HPI, abnormal vaginal bleeding. denies: discharge. Musculoskeletal denies back pain, denies joint pain, denies joint swelling, denies neck pain Skin denies rash Psychiatric/Neurological denies headache, denies seizure Physical Exam Vital Signs Vital Signs Date Time Temp Pulse Resp B/P Pulse O2 O2 Flow FiO2 Ox Delivery Rate 02/29 2056 98.2 90 18 130/91 98 - WBC >12,000 or <4,000 or 10% bands? 2 or more SIRS Criteria Met? B/P:130/91 MAP:104 Creatinine >2.0? UA output<0.5ml/kg/hr for 2 hrs? Platelet count >100,000? Lactate >2.0mmol/1? INR >1.2 or PTT > than 60 sec? Evidence of Organ Dysfunction? Provider documented clinical suspician of infection? N Sepsis Criteria Count: 1 Sepsis Risk: Low Sepsis Risk General Appearance no apparent distress Eye Exam - bilateral eye PERRL, bilateral eye EOMI Ear, Nose, Throat normal ENT inspection Neck supple Respiratory Status No: respiratory distress. Cardiovascular regular rate/rhythm Peripheral Pulses Pulses normal Yes Gastrointestinal soft Extremities normal inspection Strength 4 Upper Ext (L), 4 Upper Ext (R), 4 Lower Ext (L), 4 Lower Ext (R) Pelvic normal external exam, sl open os with sl clot but no gross hemmorrage Nurse present during exam? Yes Neurologic alert, channel rebuilder II-XII nml as tested Mental status normal mood/affect Skin intact Medical Decision Making LABS/Meds/Orders Pt receiving controlled substance in ED? No Results/Orders Laboratory Tests 02/28/170: Sodium 136, Potassium 3.5, Chloride 101, Carbon Dioxide 24, BUN 5 L, Creatinine 0.5 L, Estimated Creat Clear 237 H, Estimated GFR (MDRD) 148, Glucose 264 H, Calcium 8.7, Total Bilirubin 1.7 H, AST 10 L, ALT 38, Alkaline Phosphatase 66, Total Protein 7.8, Albumin 3.9, Globulin 3.9 H, Albumin/Globulin Ratio 1.0 L, Beta HCG, Quant 4501.2, WBC 8.8, RBC 5.11, Hgb 15.0, Hct 45.0, MCV 88.0, RDW 13.8, Plt Count 305, Gran % 67.6, Gran # 5.9, Lymphocytes % 28.6, Monocytes % 3.8, Lymphocytes # 2.5, Monocytes # 0.3, PUBS MCHC 33.3, MCH 29.4, Miscellaneous Test POSITIVE Current Medication Orders Sig/Jose F Start time Last Medication Dose Route Stop Time Status Admin Sodium Chloride 10 ML PRN PRN 02/28 2115 AC IV 03/01 2105 Orders Procedure Date/time Status IV SALINE LOCK 02/28 2105 Active RH BLOOD TYPE 02/28 2105 Complete CBC WITH AUTO DIFF 02/28 2105 Complete CHEM 12 PROFILE 02/28 2105 Complete BETA-HCG, QUANT 02/28 2105 Complete Departure Departure Time of Disposition 2215 Disposition DC Home or Self Care(routine) Clinical Impression Primary Impression: Miscarriage Secondary Impressions: Qualifiers: Weeks of gestation: less than 8 weeks Qualified Code: Z3A.01 - Less than 8 weeks gestation of Condition STABLE Referrals Miki Blake MD (Family) discussed with dr valdes Patient Instructions DI for Vaginal Bleeding During Additional Instructions call your ob in am Discharge Counseling Counseled pt/family regarding diagnosis, test results, follow up needs ED Critical Care Critical Care No at 2210
--- NOTE | 2017-02-28 21:32 | Emergency Room Report ---
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 N Clinical Suspician of Infection? N Mental Status: 1 - Regular (Normal Baseline) Sepsis Risk:Low Sepsis Risk Have you (or family members/close friends) recently traveled outside the [place]? N If Yes, where/when: Have you had exposure to infectious disease within the past month? N TB? Other? Specify: Source patient, RN notes reviewed, family, old records Exam Limitations no limitations Comment pt is about 6 weeks preg and is having abn vag bleeding with cramps - [facility] ed today with u/s and exam with blood work- records obtained and reviewed- she has inc sx since that time - Cardiac Chest Pain Chest pain indicative of cardiac No Timing/Duration this evening Severity moderate ALLERGIES Coded Allergies: penicillin G (11/01/15) Home Medications Reported Medications MULTIVIT-MIN W/FE-FA ( Multivitamin Tablet) 1 TAB PO DAILY Insulin Aspart, Recombinant (Novolog Flexpen) 2 UNITS SC Q6HP PRN DIABETES History Medical History General CAD? No Angina: No [place]: No Hypertension? No Hyperlipidemia? No CHF? No DVT? No PE? No COPD? No Asthma? No Anemia? No GERD? No Gastric ulcers? No GI Bleed? No Hernia? No Thyroid Problems? No Hypothyroidism? No CVA? No Seizures? No Diabetes? Yes Insulin Dependent: No Insulin Pump: No Home FSBS? No Renal Insuffiency? No End Stage Renal Disease? No UTI? Yes Stones? No GB Disease: Yes Nephritic Syndrome? No Asplenia? No Hepatitis? No Sickle Cell Disease? No Arthritis? No Migraines? No Cataracts? No Glaucoma? No MRSA? No HIV? No TB? No Anxiety? No Depression? No Cancer? No More? Yes Additional hx: PRE-ECLAMPSIA - GESTATIONAL DM Immunization Hx DT/Tetanus Unknown Flu NEVER Pneumonia NEVER Surgical Hx Previous Surgery?Y TONSILS AND ADENOIDS APPENDECTOMY WISDOM TEETH L E[employer]DRUM [employer] Hx LMP 1 Month Ago Est.Due Date [id number] OB DR CAMACHO ELLIS Comment [facility] Family History Family Hx Diabetes Yes CAD Yes Hypertension Yes Hyperlipidemia Yes Cancer Yes TB No Social History Smoking Hx Smoker: Never Smoker Tobacco: No Alcohol Alcohol: No Drugs none Review of Systems All Other Systems Reviewed and Negative Constitutional denies fever Eyes denies drainage ENT denies: ear discharge, epistaxis, throat pain. Respiratory denies cough, denies shortness of breath, denies wheezing Cardiovascular denies chest pain, denies syncope Gastrointestinal denies abdominal pain, denies diarrhea, denies vomiting Genitourinary see HPI, abnormal vaginal bleeding. denies: discharge. Musculoskeletal denies back pain, denies joint pain, denies joint swelling, denies neck pain Skin denies rash Psychiatric/Neurological denies headache, denies seizure Physical Exam Vital Signs Vital Signs Date Time Temp Pulse Resp B/P Pulse O2 O2 Flow FiO2 Ox Delivery Rate 02/29 2056 98.2 90 18 130/91 98 - WBC >12,000 or <4,000 or 10% bands? 2 or more SIRS Criteria Met? B/P:130/91 MAP:104 Creatinine >2.0? UA output<0.5ml/kg/hr for 2 hrs? Platelet count >100,000? Lactate >2.0mmol/1? INR >1.2 or PTT > than 60 sec? Evidence of Organ Dysfunction? Provider documented clinical suspician of infection? N Sepsis Criteria Count: 1 Sepsis Risk: Low Sepsis Risk General Appearance no apparent distress Eye Exam - bilateral eye PERRL, bilateral eye EOMI Ear, Nose, Throat normal ENT inspection Neck supple Respiratory Status No: respiratory distress. Cardiovascular regular rate/rhythm Peripheral Pulses Pulses normal Yes Gastrointestinal soft Extremities normal inspection Strength 4 Upper Ext (L), 4 Upper Ext (R), 4 Lower Ext (L), 4 Lower Ext (R) Pelvic normal external exam, sl open os with sl clot but no gross hemmorrage Nurse present during exam? 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 No Results/Orders Laboratory Tests 02/28/170: Sodium 136, Potassium 3.5, Chloride 101, Carbon Dioxide 24, BUN 5 L, Creatinine 0.5 L, Estimated Creat Clear 237 H, Estimated GFR (MDRD) 148, Glucose 264 H, Calcium 8.7, Total Bilirubin 1.7 H, AST 10 L, ALT 38, Alkaline Phosphatase 66, Total Protein 7.8, Albumin 3.9, Globulin 3.9 H, Albumin/Globulin Ratio 1.0 L, Beta HCG, Quant 4501.2, WBC 8.8, RBC 5.11, Hgb 15.0, Hct 45.0, MCV 88.0, RDW 13.8, Plt Count 305, Gran % 67.6, Gran # 5.9, Lymphocytes % 28.6, Monocytes % 3.8, Lymphocytes # 2.5, Monocytes # 0.3, PUBS MCHC 33.3, MCH 29.4, Miscellaneous Test POSITIVE Current Medication Orders Sig/Jose F Start time Last Medication Dose Route Stop Time Status Admin Sodium Chloride 10 ML PRN PRN 02/28 2115 AC IV 03/01 2105 Orders Procedure Date/time Status IV SALINE LOCK 02/28 2105 Active RH BLOOD TYPE 02/28 2105 Complete CBC WITH AUTO DIFF 02/28 2105 Complete CHEM 12 PROFILE 02/28 2105 Complete BETA-HCG, QUANT 02/28 2105 Complete Departure Departure Time of Disposition 2215 Disposition DC Home or Self Care(routine) Clinical Impression Primary Impression: Miscarriage Secondary Impressions: Qualifiers: Weeks of gestation: less than 8 weeks Qualified Code: Z3A.01 - Less than 8 weeks gestation of Condition STABLE Referrals Miki Blake MD (Family) discussed with dr valdes Patient Instructions DI for Vaginal Bleeding During Additional Instructions call your ob in am Discharge Counseling Counseled pt/family regarding diagnosis, test results, follow up needs ED Critical Care Critical Care No at 2213
[2017-02-28 22:58] VITALS: BP 150/95
== END 2017-02-28 22:58 | disposition home or self-care (01) ==
LOC: ER 20:52
PROVIDERS: Emergency Medicine
DX: O02.1 Missed abortion (principal)